=== PATIENT | male | born 1950 | race Caucasian/White ===

== ENCOUNTER 2018-02-07 12:23 | Emergency (ER) | payer OTHER ==
[2018-02-07] MEDS ORDERED: AMOX/K CLAV 875 MG TAB ONE (12:49)
[2018-02-07] MEDS ORDERED: TETANUS & DIPHTHERIA TOX,ADULT 0.5 ML VIAL ONE (12:50)
[2018-02-07] MEDS ORDERED: LIDOCAINE 1% MPF 2 ML AMPULE ONE (13:40)
--- NOTE | 2018-02-07 13:55 | ER ---
Nurse's Notes [facility] Name: Seth Ng Age: 67 yrs Sex: Male : 1950 Arrival Date: 02/07/2018 Time: 12:26 Bed 19 Private MD: Diagnosis: Bitten by dog;Laceration without foreign body of left thumb without damage to nail;Puncture wound without foreign body of left thumb without damage to nail Presentation: 02/07 12:26 Presenting complaint: Patient states: My dog got hit by a car and I went out to pick it la1 up and she latched on to my left thumb and wound not let go. PT reports decreased ROM of thumb. Transition of care: patient was not received from another setting of care. Onset of symptoms was February 07, 2018. Risk Assessment: Do you want to hurt yourself or someone else? Patient reports no desire to harm self or others. Initial Sepsis Screen: Does the patient meet any 2 criteria? No. Patient's initial sepsis screen is negative. Does the patient have a suspected source of infection? No. Patient's initial sepsis screen is negative. Care prior to arrival: None. 12:26 Method Of Arrival: Ambulatory la1 12:26 Acuity: NEO 3 la1 Triage Assessment: 12:37 General: Appears in no apparent distress. uncomfortable, Behavior is calm, cooperative, hj appropriate for age. Pain: Complains of pain in lateral aspect of left hand and palmar aspect of distal phalanx of left thumb. Historical: - Allergies: 12:28 No Known Allergies; la1 - PMHx: 12:28 Hypertension; la1 - Immunization history:: Adult Immunizations up to date, Last tetanus immunization: > 10 years ago. - Social history:: Smoking status: Patient/guardian denies using tobacco. - Ebola Screening: : No symptoms or risks identified at this time. Screenin:37 Abuse screen: Denies threats or abuse. Denies injuries from another. Nutritional hj screening: No deficits noted. Tuberculosis screening: No symptoms or risk factors identified. Fall Risk None identified. Assessment: 12:37 General: Appears in no apparent distress. uncomfortable, Behavior is calm, cooperative, hj appropriate for age. Pain: Complains of pain in palmar aspect of distal phalanx of left thumb and lateral aspect of left hand. Neuro: Level of Consciousness is awake, alert, obeys commands, Oriented to person, place, time, situation, Appropriate for age. Cardiovascular: Capillary refill < 3 seconds Patient's skin is warm and dry. Respiratory: Airway is patent Respiratory effort is even, unlabored, Respiratory pattern is regular, symmetrical. GI: No signs and/or symptoms were reported involving the gastrointestinal system. : No signs and/or symptoms were reported regarding the genitourinary system. EENT: No signs and/or symptoms were reported regarding the EENT system. Derm: Wound noted. Musculoskeletal: No signs and/or symptoms reported regarding the musculoskeletal system. 12:53 Reassessment: wound was soaked with betadine and NS;. hj 13:04 Reassessment: [place] ([phone]) was called and reported the incident to dispatcher Asher, states, she will send PD officer to the ED;. 13:55 Reassessment: wound was wrapped with gauze and co band;. hj 14:02 Reassessment: officer was in room with pt; lac repair done; D/C instructionsgiven;. hj Vital Signs: 12:28 BP 144 / 99; Pulse 95; Resp 16; Temp 97.2; Pulse Ox 100% on R/A; la1 14:02 BP 142 / 97; Pulse 90; Resp 18; Pulse Ox 100% on R/A; hj ED Course: 12:26 Patient arrived in ED. tw3 12:27 Triage completed. la1 12:28 Arm band placed on right wrist. la1 12:30 Lissette Dickerson [facility]-C [facility]. kb 12:30 Manny Dorman MD is Attending Physician. kb 12:35 Ross Paez, MAN is Primary Nurse. hj 12:37 Patient has correct armband on for positive identification. Bed in low position. Call hj light in reach. Side rails up X 1. 13:38 X-ray completed. Portable x-ray completed in exam room. Patient tolerated procedure la2 well. 13:48 Hand Left 3 View XRAY In Process Unspecified. EDMS 14:01 No provider procedures requiring assistance completed. Patient did not have IV access hj during this emergency room visit. Administered Medications: 12:35 Drug: Tetanus-Diphtheria Toxoid Adult 0.5 ml {Sheet Metal Operator: [employer]. Exp: hj 01/22/2019. Lot #: [id number]. } Route: IM; Site: left deltoid; 13:30 Follow up: Response: No adverse reaction 12:35 Drug: Augmentin 875 mg Route: PO; 13:30 Follow up: Response: No adverse reaction Outcome: 13:54 Discharge ordered by . zully 14:01 Discharged to home ambulatory. hj 14:01 Condition: stable 14:01 Discharge instructions given to patient, Instructed on discharge instructions, follow up and referral plans. medication usage, wound care, Demonstrated understanding of instructions, follow-up care, medications, Prescriptions given X 1. 14:03 Patient left the ED. Signatures: Dispatcher [employer] EDMS Lissette Dickerson, MAXIC DRILL PRESS OPERATOR FOR METAL-Corky Khoury RN RN la1 Ross Paez, RN RN Natalie López tw3 Donna Oliver2 Corrections: (The following items were deleted from the chart) 13:07 13:04 Reassessment: Mary VILLELA was called and reported the incident to dispatcher barney Sterling, states, she will send PD officer to the ED; barney
--- NOTE | 2018-02-07 13:55 | EDPHYS ---
Physician Documentation [facility] Name: Seth Ng Age: 67 yrs Sex: Male : 1950 Arrival Date: 02/07/2018 Time: 12:26 Bed 19 Private MD: ED Physician Manny Dorman HPI: 02/07 13:50 This 67 yrs old Male presents to ER via Ambulatory with complaints of Dog kb Bite. 13:50 The patient was bitten on the left thumb, by a dog, while tending to the injured kb animal, outdoors. Onset: The symptoms/episode began/occurred just prior to arrival. Animal information: The animal was reported to appear healthy. Animal's vaccinations are up to date. Secondary to the bite the patient reports pain, Associated signs and symptoms: Pertinent positives: pain at site, swelling at site, tenderness. Severity of symptoms: At their worst the symptoms were moderate, in the emergency department the symptoms are unchanged. The patient has not experienced similar symptoms in the past. The patient has not recently seen a physician. Historical: - Allergies: 12:28 No Known Allergies; la1 - PMHx: 12:28 Hypertension; la1 - Immunization history:: Adult Immunizations up to date, Last tetanus immunization: > 10 years ago. - Social history:: Smoking status: Patient/guardian denies using tobacco. - Ebola Screening: : No symptoms or risks identified at this time. ROS: 13:29 Constitutional: Negative for fever, chills, and weight loss, Cardiovascular: Negative kb for chest pain, palpitations, and edema, Respiratory: Negative for shortness of breath, cough, wheezing, and pleuritic chest pain, Abdomen/GI: Negative for abdominal pain, nausea, vomiting, diarrhea, and constipation, Neuro: Negative for headache, weakness, numbness, tingling, and seizure. 13:29 MS/extremity: Positive for injury or acute deformity, decreased range of motion, pain, of the left thumb. 13:29 Skin: Positive for laceration(s), puncture, of the left thumb. Exam: 13:49 Constitutional: This is a well developed, well nourished patient who is awake, alert, kb and in no acute distress. Head/Face: Normocephalic, atraumatic. Neck: Trachea midline, no thyromegaly or masses palpated, and no cervical lymphadenopathy. Supple, full range of motion without nuchal rigidity, or vertebral point tenderness. No Meningismus. Chest/axilla: Normal chest wall appearance and motion. Nontender with no deformity. No lesions are appreciated. Cardiovascular: Regular rate and rhythm with a normal S1 and S2. No gallops, murmurs, or rubs. Normal PMI, no JVD. No pulse deficits. Respiratory: Lungs have equal breath sounds bilaterally, clear to auscultation and percussion. No rales, rhonchi or wheezes noted. No increased work of breathing, no retractions or nasal flaring. Abdomen/GI: Soft, non-tender, with normal bowel sounds. No distension or tympany. No guarding or rebound. No evidence of tenderness throughout. Neuro: Awake and alert, GCS 15, oriented to person, place, time, and situation. Cranial nerves II-XII grossly intact. Motor strength 5/5 in all extremities. Sensory grossly intact. Cerebellar exam normal. Normal gait. 13:49 Musculoskeletal/extremity: Extremities: grossly normal except: noted in the left thumb: decreased ROM, laceration, pain, puncture, swelling, ROM: limited active range of motion, in the left thumb, Circulation is intact in all extremities. Sensation intact. 13:50 Skin: injury, bite(s), superficial, of the left thumb. Vital Signs: 12:28 BP 144 / 99; Pulse 95; Resp 16; Temp 97.2; Pulse Ox 100% on R/A; la1 14:02 BP 142 / 97; Pulse 90; Resp 18; Pulse Ox 100% on R/A; hj Laceration: 13:49 Wound Repair of 2cm ( 0.8in ) subcutaneous laceration to palmar aspect of proximal kb phalanx of left thumb. Irregularly shaped.. Distal neuro/vascular/tendon intact. Anesthesia: Local anesthetic administered with 1 mls of 1% lidocaine. Wound prep: Extensive cleansing with betadine by me, Wound irrigation with saline by hi. Skin closed with 2 4-0 Prolene using interrupted sutures and sterile technique. Dressed with Bacitracin, 4x4's. Patient tolerated well. MDM: 12:30 Patient medically screened. 13:48 Data reviewed: vital signs, nurses notes. Data interpreted: Pulse oximetry: on room air kb is 100 %. Interpretation: normal. Counseling: I had a detailed discussion with the patient and/or guardian regarding: the historical points, exam findings, and any diagnostic results supporting the discharge/admit diagnosis, radiology results, the need for outpatient follow up, a family practitioner, to return to the emergency department if symptoms worsen or persist or if there are any questions or concerns that arise at home. 02/07 12:33 Order name: Hand Left 3 View XRAY kb 02/07 12:33 Order name: Wound Care: clean wound; Complete Time: 12:46 kb Administered Medications: 12:35 Drug: Tetanus-Diphtheria Toxoid Adult 0.5 ml {[employer]: [employer] Exp: hj 01/22/2019. Lot #: [id number]. } Route: IM; Site: left deltoid; 13:30 Follow up: Response: No adverse reaction hj 12:35 Drug: Augmentin 875 mg Route: PO; hj 13:30 Follow up: Response: No adverse reaction hj Disposition: 14:45 Co-signature as Attending Physician, Manny Dorman MD I agree with the assessment and ginette plan of care. Disposition: 02/07/18 13:54 Discharged to Home. Impression: Bitten by dog, Laceration without foreign body of left thumb without damage to nail, Puncture wound without foreign body of left thumb without damage to nail. - Condition is Stable. - Discharge Instructions: Animal Bite, [id number], Laceration Care, Adult, [id number]. - Prescriptions for Augmentin 875- 125 mg Oral Tablet - take 1 tablet by ORAL route every 12 hours for 7 days; 14 tablet. - Medication Reconciliation Form, Thank You Letter, Antibiotic Education, Prescription Opioid Use form. - Follow up: Emergency Department; When: As needed; Reason: Worsening of condition. Follow up: Private Physician; When: 2 - 3 days; Reason: Recheck today's complaints, Continuance of care, Re-evaluation by your physician. Signatures: Dispatcher [employer] Lissette Christensen, INSPECTOR RAW QUARTZ-C INSPECTOR RAW QUARTZ-Manny Barnes MD MD cha Attema, Lee RN RN Ross Rodríguez RN RN hj Corrections: (The following items were deleted from the chart) 14:03 13:54 02/07/2018 13:54 Discharged to Home. Impression: Bitten by dog; Laceration hj without foreign body of left thumb without damage to nail; Puncture wound without foreign body of left thumb without damage to nail. Condition is Stable. Forms are Medication Reconciliation Form, Thank You Letter, Antibiotic Education, Prescription Opioid Use. Follow up: Emergency Department; When: As needed; Reason: Worsening of condition. Follow up: Private Physician; When: 2 - 3 days; Reason: Recheck today's complaints, Continuance of care, Re-evaluation by your physician. kb
--- NOTE | 2018-02-07 14:04 | RAD REPORT ---
EXAM DESCRIPTION: RAD - Hand Left 3 View - 02/07/2018 1:48 pm CLINICAL HISTORY: Dog bite, trauma to the thumb COMPARISON: November 2006 FINDINGS: Degenerative changes present at the IP joint of the thumb. No fracture of the thumb identi fied. No air or foreign body in the soft tissues. Patient has advanced degenerative change at the trapezium first metacarpal articulation. Minimal IP j oint space narrowing seen in the second-fifth digits. IMPRESSION: No fracture or acute finding of the thumb. No air or foreign body. Elsewhere in the hand degenerative changes are present without acute finding.
[2018-02-07 14:06] VITALS: TEMP 97.2; O2SAT 100
[2018-02-07 14:07] VITALS: BP 142/97
== END 2018-02-07 14:03 | disposition home or self-care (01) ==
LOC: ER 12:23
DX: S61.012A Laceration without foreign body of left thumb without damage to nail, initial encounter (principal); S61.032A Puncture wound without foreign body of left thumb without damage to nail, initial encounter; W54.0XXA Bitten by dog, initial encounter; Y93.9 Activity, unspecified; Y92.9 Unspecified place or not applicable; Z23 Encounter for immunization
CPT/HCPCS: 73130; 90714; 99283; J2001

== ENCOUNTER 2020-05-04 20:10 | Inpatient (IN) | payer OTHER, MEDICARE ==
--- OUTSIDE RECORDS SUMMARY | 2020-05-04 20:12 | XMS REPORT | Continuity of Care Document ---
:1950 Author Organization [facility] t Address [address] [place] [address] Care Team Providers Name Role Phone Lab, [facility] Short I Attending Clinician Unavailable ROBERT Attending Clinician Unavailable Problems This patient has no known problems. Allergies, Adverse Reactions, Alerts This patient has no known allergies or adverse reactions. Medications This patient has no known medications. Procedures This patient has no known procedures. Encounters Start End Encounter Admission Attending Care Care Encounter Source Date/Time Date/Time Type Type Clinicians Facility Department ID 2020-04-24 2020-04-24 Laboratory Lab, [facility] [id number] 16:44:42 17:04:42 Only [facility] [id number] [place] [id number] [facility] [phone] nal 0[address] One Results Test Description Test Time Test Comments Results Result Sourc e Comments CHEST 2 VIEWS 2018-03-09 11:47:00 [facility] [address] [place] [address] Patient Name: LILIAN DUNLAP MR #: [id number] : 1950 Age/Sex: 67/M Req #: [id number] Adm Physician: Ordered by: ERIK JONES MD Report #: [id number] Location: OR Room/Bed: Procedure: [id number] DX/CHEST 2 VIEWS Exam Date: Exam Time: REPORT STATUS: Signed EXAM: XR CHEST 2 VIEWS DATE: 03/09/2018 11:07 AM INDICATION: Preop, trigger finger surgery COMPARISON: None FINDINGS: Lines and Tubes: None Heart and Mediastinum: No acute cardiomediastinal findings. Lungs and Pleura: No significant pleural effusion, pneumothorax, or focal consolidation. Bones and Soft Tissues: No acute findings. IMPRESSION: 1. No acute cardiopulmonary findings. Signed by: Dr. Jayy Friend MD on 03/09/2018 11:47 AM Dictated By: JAYY FRIEND MD [id number] Transcribed By: OLMAN on 03/09/18 [id number] COPY TO: ERIK JONES MD
--- OUTSIDE RECORDS SUMMARY | 2020-05-04 20:12 | XMS REPORT | Summary of Care ---
:1950 Author Organization [facility] Address [address] [place] [address] Care Team Providers Name Role Phone Alejandro Primary Care Provider Encounter Details Date Type Department Care Team Description 04/24/2020 Laboratory Only [facility] Kristen Jordan, NEW CAR MAKE READY WORKER [address] [facility] [address] [place] [address] Exposure to Medicine - [facility], Adc Fam Pob I SARS-associated [address] [facility] coronavir[address] s ([address] Dx) [place] [address] Allergies Not on Filedocumented as of this encounter (statuses as of 04/24/2020) Medications Not on filedocumented as of this encounter (statuses as of 04/24/2020) Active Problems Not on filedocumented as of this encounter (statuses as of 04/24/2020) Social History Tobacco Use Types Packs/Day Years Used Date Never Assessed Sex Assigned at Date Recorded Not on file documented as of this encounter Last Filed Vital Signs Not on filedocumented in this encounter Nursing Notes Ramiro Vazquez MA - 04/24/2020 6:40 PM Nelsy Thelma Ng is a 69 year old male here for a Rule Out Covid-19 Nasopharyngeal Swab. Patient educated on plan of care for visit, swabbing technique, risks and benefits of test and length of time to receive results. Verbal consent obtained to perform test. CDC Fact Sheet for Patients provided to patient. All droplet and contact precautions taken with appropriate PPE worn while interacting with patient. - Goggles - N95 Mask - Gloves - Gown RR=18 O2 Sat=96% Patient swabbed using appropriate nasopharyngeal technique, and patient tolerated well. Patient was discharged in stable condition. Ramiro Vazquez MA 04/24/2020 4:49 PM /HOSTESS HEAD documented in this encounter Plan of Treatment Name Type Priority Associated Diagnoses Order S chedule COVID-19 (MOLECULAR LAB Routine Exposure to Expected : 04/24/2020, TESTING SARS-associated Expires: 021 NUCLEIC ACID coronavirus AMPLIFICATION) Health Maintenance Due Date Last Done Comments HEPATITIS C (HCV) SCREEN 1950 Depression Screening 1964 DTaP,Tdap,and Td Vaccines (1 - Tdap) 1971 COLON CANCER SCREENING ANNUAL FIT/FOBT 2002 COLON CANCER SCREENING FIT DNA EVERY 3 YEARS 2002 COLON CANCER SCREENING SIGMOIDOSCOPY EVERY 5 YEARS 2002 COLONOSCOPY 2002 Colorectal Cancer Screening 2002 Zoster Recombinant Vaccine (SHINGRIX) (1 of 2) 2002 Medicare Wellness Visit 2017 PNEUMOCOCCAL VACCINES 65+ (1 of 1 - PPSV23) 2017 INFLUENZA VACCINE (#1) 2019 documented as of this encounter Results Not on filedocumented in this encounter Visit Diagnoses Diagnosis Exposure to SARS-associated coronavirus - Primary documented in this encounter Additional Health Concerns Infection Onset Date Last Indicated Resolved Time COVID-19 Rule Out 04/24/2020 04/24/2020 documented as of this encounter Insurance Payer Benefit Plan / Subscriber ID Effective Dates Phone Addre ss Type Group [employer] [id number] 2019-Present Medicare Adv spring HMO documented as of this encounter
--- NOTE | 2020-05-04 20:58 | RAD REPORT ---
EXAM DESCRIPTION: Haley Single View05/04/2020 8:52 pm CLINICAL HISTORY: Chest pain COMPARISON: 2016 FINDINGS: The lungs appear clear of acute infiltrate. The heart is normal size. Right hemidiaphragm is mildly elevated
[2020-05-04 21:44] LABS: Absolute Lymphocytes (CBC) 1.2 K/uL (0.7-4.9); Basophils % 0.4 % (0-1.3); Hematocrit 42.1 % (39.6-49.0); Lymphocytes % 22.3 % (15.3-44.8); MPV 8.4 fL (7.6-11.3)
[2020-05-04 21:47] LABS: Protime INR 0.87
[2020-05-04 22:07] LABS: ALT/SGPT 23 U/L (12-78); AST/SGOT 15 U/L (15-37); Albumin 3.7 g/dL (3.4-5.0); Alkaline Phosphatase 82 U/L (45-117); BUN Blood Urea Nitrogen 22 mg/dL (7-18); Bicarbonate 31 mmol/L (21-32); Bilirubin Direct < 0.1 mg/dL (0-0.2); Bilirubin Total 0.2 mg/dL (0.2-1.0); Glucose Level 179 mg/dL (74-106); NT PRO-BNP 36 pg/mL (<125); Protein, Total 6.8 g/dL (6.4-8.2); Sodium Level 142 mmol/L (136-145); Troponin (Emerg Dept Use Only) < 0.02 ng/mL (0.0-0.045)
[2020-05-04 22:30] LABS: SARS-COV-2 RT PCR NEGATIVE (NEGATIVE)
--- NOTE | 2020-05-04 23:31 | ER ---
Nurse's Notes [facility] Name: Seth Ng Age: 70 yrs Sex: Male : 1950 Arrival Date: 05/04/2020 Time: 20:13 Bed 13 Private MD: Caden Allen Diagnosis: Chest pain Presentation: 05/04 20:18 Chief complaint: Patient states: CP off/on for 4-5 days. CP constant for 45 minutes. ll1 Pain radiates into L arm. Saw Alejandro Taveras, EKG scheduled for tomorrow, but decided not to wait. Coronavirus screen: Client denies travel out of the [place] in the last 14 days. At this time, the client does not indicate any symptoms associated with coronavirus-19. Ebola Screen: Patient denies travel to an Ebola-affected area in the 21 days before illness onset. Initial Sepsis Screen: Does the patient meet any 2 criteria? No. Patient's initial sepsis screen is negative. Does the patient have a suspected source of infection? No. Patient's initial sepsis screen is negative. Risk Assessment: Do you want to hurt yourself or someone else? Patient reports no desire to harm self or others. Onset of symptoms was April 30, 2020. 20:18 Method Of Arrival: Ambulatory ll1 20:18 Acuity: NEO 3 ll1 Historical: - Allergies: 20:18 No Known Allergies; ll1 - PMHx: 20:18 Hypertension; Thyroid problem; ll1 - PSHx: 20:18 knee, hand, stomache; ll1 - Immunization history:: Flu vaccine is not up to date. - Social history:: Smoking status: Patient denies any tobacco usage or history of. Smoking status: . Screenin:30 Abuse screen: Denies threats or abuse. Nutritional screening: No deficits noted. vg1 Tuberculosis screening: No symptoms or risk factors identified. Fall Risk No fall in past 12 months (0 pts). No secondary diagnosis (0 pts). IV access (20 points). Ambulatory Aid- None/Bed Rest/Nurse Assist (0 pts). Gait- Weak (10 pts.). Mental Status- Oriented to own ability (0 pts). Total Calzada Fall Scale indicates No Risk (0-24 pts). Assessment: 20:28 General: Appears in no apparent distress. comfortable, Behavior is calm, cooperative. vg1 Pain: Denies pain. Neuro: Level of Consciousness is awake, alert, obeys commands, Oriented to person, place, time, situation. Cardiovascular: Capillary refill < 3 seconds Patient's skin is warm and dry. Cardiovascular: Rhythm is regular. Respiratory: Airway is patent Respiratory effort is even, unlabored, Respiratory pattern is regular, symmetrical. GI: No signs and/or symptoms were reported involving the gastrointestinal system. : No signs and/or symptoms were reported regarding the genitourinary system. EENT: No signs and/or symptoms were reported regarding the EENT system. 21:20 Reassessment: Patient appears in no apparent distress at this time. Patient is alert, vg1 oriented x 3, equal unlabored respirations, skin warm/dry/pink. Patient denies pain at this time. 22:25 Reassessment: No changes from previously documented assessment. vg1 05/05 01:00 General: Appears Behavior is calm, cooperative, appropriate for age. Pain: Denies pain. jv1 Neuro: Level of Consciousness is awake, alert, obeys commands, Oriented to person, place, time, situation, Cupola Repairer are equal bilaterally Moves all extremities. Cardiovascular: Capillary refill < 3 seconds Patient's skin is warm and dry. Rhythm is regular. Respiratory: Airway is patent Respiratory effort is even, unlabored, Respiratory pattern is regular, symmetrical. GI: No signs and/or symptoms were reported involving the gastrointestinal system. : No signs and/or symptoms were reported regarding the genitourinary system. EENT: No signs and/or symptoms were reported regarding the EENT system. Vital Signs: 05/04 20:18 BP 176 / 114; Pulse 75; Resp 17; Pulse Ox 98% ; Weight 102.97 kg; Height 5 ft. 10 in. ll1 (177.80 cm); Pain 10/10; 20:30 BP 148 / 86; Pulse 67; Resp 18; Pulse Ox 97% on R/A; vg1 21:00 BP 134 / 77; Pulse 61; Resp 14; Pulse Ox 96% on R/A; vg1 21:30 BP 148 / 86; Pulse 64; Resp 20; Pulse Ox 97% on R/A; vg1 22:00 BP 145 / 89; Pulse 65; Resp 16; Pulse Ox 98% on R/A; vg1 22:30 BP 131 / 79; Pulse 56; Resp 16; Pulse Ox 95% on R/A; vg1 23:00 BP 130 / 77; Pulse 57; Resp 14; Pulse Ox 96% on R/A; vg1 23:30 BP 137 / 88; Pulse 59; Resp 16; Pulse Ox 98% on R/A; vg1 05/05 00:30 BP 135 / 85; Pulse 58; Resp 18; Temp 98.5; Pulse Ox 100% ; Pain 0/10; jv1 01:30 BP 137 / 74; Pulse 55; Resp 18; Temp 98.5; Pulse Ox 96% ; Pain 0/10; jv1 05/04 20:18 Body Mass Index 32.57 (102.97 kg, 177.80 cm) ll1 ED Course: 05/04 20:13 Patient arrived in ED. es 20:13 Caden Allen MD is Private Physician. es 20:17 Arm band placed on. ll1 20:20 Triage completed. ll1 20:20 Ananda Vincent MD is Attending Physician. pkl 20:22 Edith Schwarz, MAN is Primary Nurse. vg1 20:30 Patient has correct armband on for positive identification. Bed in low position. Call vg1 light in reach. Side rails up X 1. high school business teacher on. Pulse ox on. NIBP on. 20:52 XRAY Chest (1 view) In Process Unspecified. EDMS 21:30 COVID swab sent to lab. Flu and/or RSV swab sent to lab. Inserted saline lock: 20 gauge jp3 in right antecubital area, using aseptic technique. Blood collected. Patient maintains SpO2 saturation greater than 95% on room air. 23:25 Repeat lab(s) drawn. by ny, sent to lab. vg1 23:30 Eddie Ramirez DO is Hospitalizing Provider. pkl 05/05 01:00 Report given to Lorena CONWAY. vg1 02:44 No provider procedures requiring assistance completed. Patient admitted, IV remains in jv1 place. Administered Medications: 05/04 20:42 Not Given (Changing dose per dr vincent order): Metoprolol TARTRATE (Lopressor) 50 mg PO vg1 once 20:45 Not Given (Patient BP has lowered. Dr Vincent ordered to cancel medication): Metoprolol 25 vg1 mg PO once Outcome: 23:31 Decision to Hospitalize by Provider. len 05/05 02:00 Admitted to jv1 Admitted to ER Hold. Please see [facility] for further documentation. Condition: stable Instructed on the need for admit. 08:29 Patient left the ED. Signatures: Dispatcher [employer] Ananda Huizar MD MD pkl Massiel Quiles Shelby RN RN ss Juan J Mahoney jp3 Lorena Quinones RN RN jv1 Edith Schwarz RN RN vg1 Sonja Howell RN RN ll1
--- NOTE | 2020-05-04 23:31 | EDPHYS ---
Physician Documentation [facility] Name: Seth Ng Age: 70 yrs Sex: Male : 1950 Arrival Date: 05/04/2020 Time: 20:13 Bed 13 Private MD: Caden Allen ED Physician Ananda Vincent HPI: 05/04 20:35 This 70 yrs old Male presents to ER via Ambulatory with complaints of Chest pkl Pain. 20:35 The patient or guardian reports chest pain that is located primarily in the substernal pkl area. Onset: 4 day(s) ago, and became worse today. The pain radiates to the left arm. Associated signs and symptoms: The patient has no apparent associated signs or symptoms. The chest pain is described as a pressure. Historical: - Allergies: 20:18 No Known Allergies; ll1 - PMHx: 20:18 Hypertension; Thyroid problem; ll1 - PSHx: 20:18 knee, hand, stomache; ll1 - Immunization history:: Flu vaccine is not up to date. - Social history:: Smoking status: Patient denies any tobacco usage or history of. Smoking status: . ROS: 20:35 Eyes: Negative for injury, pain, redness, and discharge, ENT: Negative for injury, pkl pain, and discharge, Neck: Negative for injury, pain, and swelling. 20:35 Cardiovascular: Positive for chest pain. 20:35 Respiratory: Negative for cough, shortness of breath. 20:35 Abdomen/GI: Negative for abdominal pain, nausea, vomiting, and diarrhea. 20:35 Back: Negative for acute changes. 20:35 : Negative for urinary symptoms. 20:35 MS/extremity: Negative for acute changes. 20:35 Skin: Negative for rash. 20:35 Neuro: Negative for altered mental status, loss of consciousness. Exam: 20:35 Head/Face: Normocephalic, atraumatic. Eyes: Pupils equal round and reactive to light, pkl extra-ocular motions intact. Lids and lashes normal. Conjunctiva and sclera are non-icteric and not injected. Cornea within normal limits. Periorbital areas with no swelling, redness, or edema. ENT: Nares patent. No nasal discharge, no septal abnormalities noted. Tympanic membranes are normal and external auditory canals are clear. Oropharynx with no redness, swelling, or masses, exudates, or evidence of obstruction, uvula midline. Mucous membranes moist. Neck: Trachea midline, no thyromegaly or masses palpated, and no cervical lymphadenopathy. Supple, full range of motion without nuchal rigidity, or vertebral point tenderness. No Meningismus. Chest/axilla: Normal chest wall appearance and motion. Nontender with no deformity. No lesions are appreciated. Cardiovascular: Regular rate and rhythm with a normal S1 and S2. No gallops, murmurs, or rubs. Normal PMI, no JVD. No pulse deficits. Respiratory: Lungs have equal breath sounds bilaterally, clear to auscultation and percussion. No rales, rhonchi or wheezes noted. No increased work of breathing, no retractions or nasal flaring. Abdomen/GI: Soft, non-tender, with normal bowel sounds. No distension or tympany. No guarding or rebound. No evidence of tenderness throughout. Back: No spinal tenderness. No costovertebral tenderness. Full range of motion. Skin: Warm, dry with normal turgor. Normal color with no rashes, no lesions, and no evidence of cellulitis. MS/ Extremity: Pulses equal, no cyanosis. Neurovascular intact. Full, normal range of motion. Neuro: Awake and alert, GCS 15, oriented to person, place, time, and situation. Cranial nerves II-XII grossly intact. Motor strength 5/5 in all extremities. Sensory grossly intact. Cerebellar exam normal. Normal gait. Vital Signs: 20:18 BP 176 / 114; Pulse 75; Resp 17; Pulse Ox 98% ; Weight 102.97 kg; Height 5 ft. 10 in. ll1 (177.80 cm); Pain 10/10; 20:30 BP 148 / 86; Pulse 67; Resp 18; Pulse Ox 97% on R/A; vg1 21:00 BP 134 / 77; Pulse 61; Resp 14; Pulse Ox 96% on R/A; vg1 21:30 BP 148 / 86; Pulse 64; Resp 20; Pulse Ox 97% on R/A; vg1 22:00 BP 145 / 89; Pulse 65; Resp 16; Pulse Ox 98% on R/A; vg1 22:30 BP 131 / 79; Pulse 56; Resp 16; Pulse Ox 95% on R/A; vg1 23:00 BP 130 / 77; Pulse 57; Resp 14; Pulse Ox 96% on R/A; vg1 23:30 BP 137 / 88; Pulse 59; Resp 16; Pulse Ox 98% on R/A; vg1 05/05 00:30 BP 135 / 85; Pulse 58; Resp 18; Temp 98.5; Pulse Ox 100% ; Pain 0/10; jv1 01:30 BP 137 / 74; Pulse 55; Resp 18; Temp 98.5; Pulse Ox 96% ; Pain 0/10; jv1 05/04 20:18 Body Mass Index 32.57 (102.97 kg, 177.80 cm) ll1 MDM: 05/04 20:20 Patient medically screened. pkl 23:25 Data reviewed: vital signs, nurses notes, lab test result(s), EKG, radiologic studies, pkl CT scan. ED course: Talked to Dr. Allen, leaving [facility] in the morning. To admit to Hospitalist service. 05/04 20:34 Order name: Basic Metabolic Panel; Complete Time: 23:05 pkl 05/04 20:34 Order name: CBC with Diff; Complete Time: 23:05 pkl 05/04 20:34 Order name: LFT's; Complete Time: 23:05 pkl 05/04 20:34 Order name: Magnesium; Complete Time: 23:05 pkl 05/04 20:34 Order name: NT PRO-BNP; Complete Time: 23:05 pkl 05/04 20:34 Order name: PT-INR; Complete Time: 23:05 pkl 05/04 20:34 Order name: Troponin (emerg Dept Use Only); Complete Time: 23:05 pkl 05/04 20:34 Order name: D-Dimer; Complete Time: 23:05 pkl 05/04 20:34 Order name: TSH; Complete Time: 23:05 pkl 05/04 22:12 Order name: T4 Free; Complete Time: 23:05 EDMS 05/04 22:31 Order name: COVID-19/FLU A+B; Complete Time: 23:05 EDMS 05/04 23:09 Order name: Troponin (emerg Dept Use Only) pkl 05/04 20:34 Order name: XRAY Chest (1 view); Complete Time: 21:30 pkl 05/04 20:34 Order name: EKG; Complete Time: 20:35 pkl 05/04 20:34 Order name: Cardiac monitoring; Complete Time: 20:39 pkl 05/04 20:34 Order name: EKG - Nurse/Tech; Complete Time: 20:39 pkl 05/04 20:34 Order name: IV Saline Lock; Complete Time: 21:41 pkl 05/04 20:34 Order name: Labs collected and sent; Complete Time: 21:41 pkl 05/04 20:34 Order name: O2 Per Protocol; Complete Time: 20:39 pkl 05/04 20:34 Order name: O2 Sat Monitoring; Complete Time: 20:39 pkl 05/04 23:09 Order name: EKG; Complete Time: 23:09 pkl 05/05 06:22 Order name: CBC with Automated Diff EDMS 05/05 06:34 Order name: Basic Metabolic Panel EDMS 05/05 06:34 Order name: Troponin I EDMS 05/05 06:34 Order name: Lipid Profile EDMS 05/05 06:34 Order name: Magnesium EDMS Administered Medications: 20:42 Not Given (Changing dose per dr vincent order): Metoprolol TARTRATE (Lopressor) 50 mg PO vg1 once 20:45 Not Given (Patient BP has lowered. Dr Vincent ordered to cancel medication): Metoprolol 25 vg1 mg PO once Disposition: 05/04/20 23:31 Hospitalization ordered by Eddie Ramierz for Observation. Preliminary diagnosis is Chest pain. - Bed requested for Telemetry/MedSurg (observation). - Status is Observation. ss - Condition is Stable. - Problem is new. - Symptoms are unchanged. Signatures: Dispatcher [employer] EDMS Ananda Vincent MD MD pkl Smirch, Shelby, RN RN ss Garcia, Cindy, RN RN cg Alyson Martino Victoria RN RN vg1 Sonja Howell RN RN ll1 Corrections: (The following items were deleted from the chart) 21:39 20:35 Influenza Screen (A \T\ B)+BA.LAB.BRZ ordered. EDMS EDMS 21:39 20:35 CORONAVIRUS+MR.LAB.BRZ ordered. EDMS EDMS 23:55 23:31 Hospitalization Ordered by Eddie Ramirez DO for Observation. Preliminary cg diagnosis is Chest pain. Bed requested for Telemetry/MedSurg (observation). Status is Observation. Condition is Stable. Problem is new. Symptoms are unchanged. pkl 05/05 07:58 05/04 23:55 05/04/2020 23:31 Hospitalization Ordered by Eddie Ramirez DO for eb Observation. Preliminary diagnosis is Chest pain. Bed requested for [facility] ER HOLD. Status is Observation. Condition is Stable. Problem is new. Symptoms are unchanged. cg 05/05 08:29 07:58 05/04/2020 23:31 Hospitalization Ordered by Eddie Ramirez DO for Observation. ss Preliminary diagnosis is Chest pain. Bed requested for Telemetry/MedSurg (observation). Status is Observation. Condition is Stable. Problem is new. Symptoms are unchanged. eb
--- NOTE | 2020-05-04 23:49 | P.HP ---
Certification for Inpatient Patient admitted to: Observation With expected LOS: <2 Midnights Patient will require the following post-hospital care: None Practitioner: I am a practitioner with admitting privileges, knowledge of patient current condition, hospital course, and medical plan of care. Services: Services provided to patient in accordance with Admission requirements found in Title 42 Section 412.3 of the Code of Federal Regulations <Corky Bray - Last Filed: 05/04/20 23:47> Patient admitted to: Observation <Eddie Ramirez - Last Filed: 05/05/20 11:01> Patient History Date of Service: 05/04/20 Primary Care Provider: Dr. Gudino (Covering for him) Reason for admission: Chest pain History of Present Illness: 70-year-old male with history of hypertension, hypothyroidism, family history of coronary artery disease presents emergency department for chest pain patient reports that he has been having pain intermittently for the past for 5 days but worse tonight. Describes pain as tightness like a belt squeezing around his heart with associated shortness of breath, pain radiating to left shoulder. Patient had stress test approximately 5 months ago that was normal, has never had a heart catheterization or stent placement. Initial troponin, EKG, chest x- ray unremarkable. ED provider wishes to admit patient for further evaluation and management. - Past Medical/Surgical History Diabetic: No -: HTN -: Hypothyroidism -: Left knee arthroscopy x2 -: Bialteral carpal tunnel release -: diaphragmatic and hiatal hernai repair Psychosocial/ Personal History: Patient lives with family - Social History Smoking Status: Never smoker Alcohol use: No CD- Drugs: No Caffeine use: Yes Place of Residence: Home <Corky Bray - Last Filed: 05/04/20 23:47> Date of Service: 05/05/20 Home medications list reviewed: Yes <Eddie Ramirez - Last Filed: 05/05/20 11:01> Allergies codeine Adverse Reaction (Mild, Verified 01/11/13 14:29) migraine Home Medications: Ascorbic Acid [Vitamin C] 2,000 mg PO DAILY 05/05/20 Atenolol [Tenormin] 25 mg PO DAILY 05/05/20 Doxycycline Hyclate 50 mg PO DAILY 05/05/20 Levothyroxine [Synthroid] 50 mcg PO [id number] 01/08/21 hydroCHLOROthiazide [Hydrochlorothiazide*] 12.5 mg PO DAILY 05/05/20 lisinopriL [Lisinopril] 40 mg PO DAILY 05/05/20 Review of Systems 10-point ROS is otherwise unremarkable Respiratory: Shortness of Breath, SOB with Excertion Cardiovascular: Chest Pain <Corky Bray - Last Filed: 05/04/20 23:47> Physical Examination - Physical Exam General: Alert, In no apparent distress HEENT: Atraumatic, PERRLA, Mucous membr. moist/pink Neck: Supple, 2+ carotid pulse no bruit, No LAD Respiratory: Clear to auscultation bilaterally, Normal air movement Cardiovascular: Regular rate/rhythm, Normal S1 S2 Gastrointestinal: Normal bowel sounds, No tenderness Musculoskeletal: No tenderness Integumentary: No rashes Neurological: Normal speech, Normal strength at 5/5 x4 extr, Normal tone, Normal affect - Studies Laboratory Data (last 24 hrs) 05/04/20 21:22: PT 10.3, INR 0.87 05/04/20 21:22: WBC 5.5, Hgb 14.3, Hct 42.1, Plt Count 209 05/04/20 21:22: Sodium 142, Potassium 4.0, BUN 22 H, Creatinine 1.25, Glucose 179 H, Magnesium 2.0, Total Bilirubin 0.2, AST 15, ALT 23, Alkaline Phosphatase 82 <Corky Bray - Last Filed: 05/04/20 23:47> - Studies Laboratory Data (last 24 hrs) 05/04/20 21:22: PT 10.3, INR 0.87 05/04/20 21:22: WBC 5.5, Hgb 14.3, Hct 42.1, Plt Count 209 05/04/20 21:22: Sodium 142, Potassium 4.0, BUN 22 H, Creatinine 1.25, Glucose 179 H, Magnesium 2.0, Total Bilirubin 0.2, AST 15, ALT 23, Alkaline Phosphatase 82 <Eddie Ramirez - Last Filed: 05/05/20 11:01> Assessment and Plan - Plan Assessment Chest pain rule out ACS Hypertension Hypothyroidism Plan Chest pain rule out ACS: Monitor on telemetry, trend troponins, cardiology consult in place. Continue daily aspirin, statin, beta galileo therapy. DVT prophylaxis with Lovenox. NPO after midnight. Lipid panel with morning labs. Hypertension: Home medications continued, will adjust as necessary. Hypothyroidism: Home medications continued. Discharge Plan: Home Plan to discharge in: 24 Hours - Advance Directives Does patient have a Living Will: No Does patient have a Durable POA for Healthcare: No - Code Status/Comfort Care Code Status Assessed: Yes (Full code) Critical Care: No Time Spent Managing Pts Care (In Minutes): 55 <Corky Bray - Last Filed: 05/04/20 23:47> - Plan Case discussed in detail with nurse practitioner. Will discuss with cardiology. Anticipate possible cardiac evaluation. Await recommendations. <Eddie Ramirez - Last Filed: 05/05/20 11:01>
[2020-05-05] MEDS ORDERED: ACETAMINOPHEN 500 MG TAB PO PRN (01:56)
[2020-05-05] MEDS ORDERED: ONDANSETRON 4 MG/2 ML VIAL IV PRN (01:56)
[2020-05-05] MEDS ORDERED: MORPHINE 2 MG/ML SYR IV PRN (01:56)
[2020-05-05 02:42] VITALS: BMI 32.5
[2020-05-05] MEDS ORDERED: atenoloL 50 MG TAB PO SCH (06:00)
[2020-05-05 06:17] LABS: Absolute Lymphocytes (CBC) 1.3 K/uL (0.7-4.9); Basophils % 0.6 % (0-1.3); Hematocrit 39.2 % (39.6-49.0); Lymphocytes % 25.4 % (15.3-44.8); MPV 7.8 fL (7.6-11.3)
[2020-05-05] MEDS: LEVOTHYROXINE SOD 0.05 MG TABLET PO SCH (06:30)
[2020-05-05 06:34] LABS: Magnesium 2.1 mg/dL (1.8-2.4); Troponin I 0.05 ng/mL (0.0-0.045)
[2020-05-05] MEDS ORDERED: LEVOTHYROXINE SOD 0.05 MG TABLET ONE (06:52)
[2020-05-05] MEDS: ENOXAPARIN 40 MG/0.4 ML SQ SCH (07:45)
[2020-05-05] MEDS: ASPIRIN EC 81 MG TAB PO SCH (08:43)
[2020-05-05] MEDS: lisinopriL 20 MG TAB PO SCH (08:43)
[2020-05-05] MEDS ORDERED: HEPA 1000U/500MLS 1,000 UNIT/500 ML BAG IV ONE (08:44)
[2020-05-05] MEDS ORDERED: NA CHLORIDE 0.9% 500 ML ONE (09:58)
[2020-05-05] MEDS ORDERED: FENTANYL CITR 100 MCG/2 ML ONE (10:05)
[2020-05-05] MEDS ORDERED: ATROPINE SULF 1 MG/10 ML SYR IV ONE (10:05)
[2020-05-05] MEDS ORDERED: MIDAZOLAM HCL 2 MG/2 ML INJ ONE ×2 (10:05→10:10)
[2020-05-05] MEDS ORDERED: NA CHLORIDE 0.9% 50 ML ONE (10:06)
[2020-05-05] MEDS ORDERED: INFLUENZA VACCINE (for 3y+) 0.5 ML DOSE IMVAC ONE (11:00)
[2020-05-05] MEDS ORDERED: PRASUGREL (EFFIENT) 10 MG TAB ONE (11:03)
--- NOTE | 2020-05-05 11:03 | P.PN ---
Subjective Date of Service: 05/05/20 Primary Care Provider: Dr. Gudino (Covering for him) Chief Complaint: Chest pain Subjective: Improving Physical Examination - Vital Signs Temperature: 97 F Blood Pressure: 138/85 Pulse: 52 Respirations: 18 Pulse Ox (%): 96 - Physical Exam General: Alert, In no apparent distress, Oriented x3, Cooperative HEENT: Atraumatic Neck: Supple Respiratory: Clear to auscultation bilaterally, Normal air movement Cardiovascular: Normal pulses, Regular rate/rhythm Gastrointestinal: Normal bowel sounds, Soft and benign, Non-distended Neurological: Normal speech, Normal strength at 5/5 x4 extr, Normal tone, Normal affect - Studies Laboratory Data (last 24 hrs) 05/04/20 21:22: PT 10.3, INR 0.87 05/04/20 21:22: WBC 5.5, Hgb 14.3, Hct 42.1, Plt Count 209 05/04/20 21:22: Sodium 142, Potassium 4.0, BUN 22 H, Creatinine 1.25, Glucose 179 H, Magnesium 2.0, Total Bilirubin 0.2, AST 15, ALT 23, Alkaline Phosphatase 82 Medications List Reviewed: Yes Assessment & Plan Discharge Plan: Home Physician Review Additional Text: Assessment Chest pain rule out ACS Hypertension Hypothyroidism Plan Chest pain rule out ACS: Cardiology consulted. Await recommendations.Anticipate possible cardiac evaluation. Continue with current medications. Will monitor and adjust appropriately. Possible discharge as early as today if workup unremarkable. Hypertension: Home medications continued, will adjust for better control. Hypothyroidism: Home medications continued. Time Spent Managing Pts Care (In Minutes): 55
[2020-05-05] MEDS ORDERED: ASPIRIN 325 MG TAB ONE (11:10)
[2020-05-05 12:02] VITALS: O2SAT 95
--- NOTE | 2020-05-05 13:50 | CON ---
Date of Consultation: 05/05/2020 Reason For Consultation: Non-ST elevation myocardial infarction. History Of Present Illness: Mr. Ng is a 70-year-old white male without any previous past cardia c history except for hypertension and hypothyroidism, came in with substernal chest pressure, difficu lty breathing, left arm radiation, nausea with some diaphoresis. Denied PND, orthopnea, pedal edema, palpitation, or syncope. Symptoms lasted for about an hour, happened while he was not exerting hims elf. His troponin was abnormal. EKG was nonspecific. Past Medical History: As stated above. Allergies: NONE. Review of Systems: Negative. Social History: Negative. Family History: Positive for heart disease. Medications: Include aspirin, lisinopril, atenolol, and hydrochlorothiazide. Physical Examination: Vital Signs: Stable, afebrile. HEENT: Negative. Neck: Supple. No bruit. Chest: Clear to auscultation and percussion. Cardiac: Revealed a regular rhythm and rate. No murmu rs, gallops, or rubs. Abdomen: Benign. Extremities: Revealed no clubbing, cyanosis, or edema. Diagnostic Data: All within normal limits except for his troponin was slightly elevated at 0.05 and 0.06. His cholesterol was 203. His LDL was 136. His TSH was 5.340. He was COVID negative. His ch est x-ray was normal. Impression And Plan: 1.Non-ST elevation myocardial infarction. 2.Strong family history for heart disease. 3.Blood pressure poorly controlled. 4.Hypothyroidism. The patient will be taken to the cardiac cath technologist today rather urgently. His symptoms are worrisome. His tr oponin is positive. The risk and the benefits of the heart catheterization were explained to him in detail and he agrees to proceed. He has already been on aspirin and Lovenox which has been held. We will see what the catheterization shows before making any further decisions. DARNELL/DEMETRICE Voice ID: [id number] Report ID: [id number]
--- NOTE | 2020-05-05 14:17 | OP ---
Date of Procedure: 05/05/2020 Surgeon: Deepak Gandara MD Procedure: Left heart catheterization, selective coronary arteriogram, left ventriculogram, primary stent of the proximal RCA. Indication: Non-ST elevation myocardial infarction. History Of Present Illness: Mr. Ng is a 70-year-old was admitted on 05/04/2020 with chest pain, positive troponin. Procedure In Detail: Brought to the laboratory apparatus glass grinder today 05/05/2020 as an inpatient. He was prepped and d raped in the routine sterile fashion. Given Versed and fentanyl for sedation. A 6-Macanese sheath was introduced in the right common femoral artery successfully using the Seldinger technique and 10 cc o f Xylocaine. Angiography there was normal. Angio-Seal was used to close the case. Catheterization was done using the JL4 and JR4 catheters. He had dual ostium with the circumflex that seem to be cod ominant that had some mild plaquing. The LAD had this on ostium may need an AL1 down the road for ca nnulation but he had a 50% stenosis in the mid LAD. His RCA had a 90% stenosis in the proximal RCA w ith SHERIDAN 2 flow. This was found using a JR4 catheter. The patient was given Angiomax. He was given Effient and aspirin. The 6-Macanese sheath stayed in place. We used a JR4 guide 6-Macanese with side h ole to cannulate the RCA. We decided to intervene. A [place] wire 0.014 was used to cross the lesion successfully. Following that, a 2.5 x 20 mm Synergy stent was placed at 17 atmosphere with excellen t 0% residual. Intracoronary nitroglycerin was given before the final shot, which showed 0% residual . Patient tolerated the procedure well. There were no complications. Total Blood Loss: 5 mL. Anesthesia: Total conscious sedation was 60 minutes. Final Diagnoses: Severe coronary artery disease status post myocardial infarction, status post succe ssful primary stent of the proximal RCA. 50% LAD stenosis with his own ostium may need to be stented down the road, but for now we will see how he does. He will remain in the hospital overnight. The case was discussed with his and Dr. Ramirez. He should be on his home medication plus aspirin pl us Plavix, and 80 mg of Lipitor. Prescription was given to the family. The patient will be discharg ed in the morning and I will see him in the office in the next 2 weeks. JOSH Voice ID: [id number] Report ID: [id number]
[2020-05-05] MEDS ORDERED: ATORVASTATIN 20 MG TAB PO SCH (21:00)
--- NOTE | 2020-05-05 22:32 | EKG ---
Test Date: 2020-05-04 Test Time: 23:20:43 Casting Inspector: SANG MEASUREMENT RESULTS: Intervals: Rate: 58 SD: 172 QRSD: 96 QT: 420 QTc: 412 [place]: P: 46 SD: 172 QRS: 4 T: -2 INTERPRETIVE STATEMENTS: Sinus bradycardia Otherwise normal ECG Compared to ECG 05/04/2020 20:34:49 Sinus rhythm no longer present Electronically Signed On 05-05-20 22:29:36 PROMOTION OFFICER by Deepak Gandara
--- NOTE | 2020-05-05 22:33 | EKG ---
Test Date: 2020-05-04 Test Time: 20:34:49 Insurance Follow Up Representative: SANG MEASUREMENT RESULTS: Intervals: Rate: 66 VT: 184 QRSD: 100 QT: 406 QTc: 425 [place]: P: 43 VT: 184 QRS: 55 T: -3 INTERPRETIVE STATEMENTS: Normal sinus rhythm Normal ECG Compared to ECG 06/03/2005 12:59:00 Sinus bradycardia no longer present Electronically Signed On 05-05-20 22:29:43 MANAGER PORT by Deepak Gandara
[2020-05-06] MEDS ORDERED: NA CHLORIDE 0.9% 1,000 ML IV SCH (02:00)
[2020-05-06] MEDS: LEVOTHYROXINE SOD 0.05 MG TABLET PO SCH (05:20)
[2020-05-06] MEDS ORDERED: METOPROLOL XL 25 MG TAB PO SCH (06:00)
[2020-05-06 06:47] LABS: Absolute Lymphocytes (CBC) 1.3 K/uL (0.7-4.9); Basophils % 0.5 % (0-1.3); Hematocrit 39.5 % (39.6-49.0); Lymphocytes % 21.6 % (15.3-44.8); MPV 8.1 fL (7.6-11.3); RBC Red Blood Cell Count 4.14 M/uL (4.33-5.43)
[2020-05-06 07:12] LABS: Potassium 3.7 mmol/L (3.5-5.1)
--- NOTE | 2020-05-06 07:50 | P.DS ---
Admission Date: 05/05/20 Discharge Date: 05/06/20 Primary Care Provider: Dr. Gudino (Covering for him) Disposition: ROUTINE DISCHARGE Discharge Condition: GOOD Reason for Admission: Chest pain Consultations: Cardiology-Dr. Gandara Procedures: COVID: Negative Heart Cath: Date of Procedure: 05/05/2020 Surgeon: Deepak Gandara MD Procedure: Left heart catheterization, selective coronary arteriogram, left ventriculogram, primary stent of the proximal RCA. Indication: Non-ST elevation myocardial infarction. History Of Present Illness: Mr. Ng is a 70-year-old was admitted on 05/04/2020 with chest pain, positive troponin. Final Diagnoses: Severe coronary artery disease status post myocardial infarction, status post successful primary stent of the proximal RCA. 50% LAD stenosis with his own ostium may need to be stented down the road Medical problem list: Chest pain secondary to NSTEMI. Status post heart catheterization showing severe Coronary artery disease with successful primary stent of the proximal RCA with noted 50% LAD stenosis Hypertension Hyperlipidemia Hypothyroidism Obesity, BMI 32 Brief History of Present Illness: 70-year-old male presented to the emergency room with chest pain. NSTEMI identified. Patient admitted for further evaluation and treatment. Hospital Course: Patient presented with chest pain secondary to NSTEMI. Patient seen and evaluated by Cardiology. Cardiology recommended heart catheterization. Heart catheterization performed showed severe Coronary artery disease with successful primary stent of the proximal RCA. 50% lad stenosis noted. This may need to be stented in the near future. Patient had mild bleeding to the growing status post heart catheterization. This resolved. No significant hematoma noted. At discharge he is without chest pain. Case discussed in detail with cardiology. At discharge patient continue with aspirin 81 mg daily, Plavix 75 mg daily, Lipitor 80 mg daily, lisinopril 40 mg daily, atenolol 25 mg daily, and hydrochlorothiazide 12.5 mg daily. Recommend follow up with cardiology in 1-2 weeks to follow up this hospitalization and continue his care. Patient with hypertension. This has remained stable. As mentioned above pat ient will continue with lisinopril 40 mg daily, atenolol 25 mg daily, and hydrochlorothiazide 12.5 mg daily. Recommend to maintain blood pressure less than 130/80. Further adjustment can be done by his PCP or cardiology. Patient with hypothyroidism. At discharge patient will continue with levothyroxine 50 mcg daily. Further adjustment in his medication and monitoring can be done by his PCP. Patient with hyperlipidemia. LDL 136. As mentioned above, the patient will continue with Lipitor 80 mg daily. Recommend to recheck fasting lipid panel in 4-6 weeks to monitor his care. Patient will continue with his other supplementations including vitamin-C and folic acid. Vital Signs/Physical Exam: Temp Pulse Resp BP Pulse Ox 97.7 F 57 18 125/78 94 05/06/20 04:00 05/06/20 05:19 05/06/20 04:00 05/06/20 05:19 05/06/20 04:00 General: Alert, In no apparent distress, Oriented x3, Cooperative HEENT: Atraumatic Neck: Supple Respiratory: Clear to auscultation bilaterally, Normal air movement Cardiovascular: Normal pulses, Regular rate/rhythm Gastrointestinal: Normal bowel sounds, Soft and benign, Non-distended, No tenderness, No masses, No rebound, No guarding Musculoskeletal: No erythema, No tenderness, No warmth Neurological: Normal speech, Normal strength at 5/5 x4 extr, Normal tone, Normal affect Laboratory Data at Discharge: WBC 5.3 K/uL (4.3-10.9) 05/05/20 06:05 Hgb 13.4 g/dL (13.6-17.9) L 05/05/20 06:05 Hct 39.2 % (39.6-49.0) L 05/05/20 06:05 Plt Count 194 K/uL (152-406) 05/05/20 06:05 PT 10.3 SECONDS (9.5-12.5) 05/04/20 21:22 INR 0.87 05/04/20 21:22 Sodium 141 mmol/L (136-145) 05/06/20 05:53 Potassium 3.7 mmol/L (3.5-5.1) 05/06/20 05:53 BUN 16 mg/dL (7-18) 05/06/20 05:53 Creatinine 1.02 mg/dL (0.55-1.3) 05/06/20 05:53 Glucose 94 mg/dL (74-106) 05/06/20 05:53 Magnesium 2.1 mg/dL (1.8-2.4) 05/05/20 06:05 Total Bilirubin 0.2 mg/dL (0.2-1.0) 05/04/20 21:22 AST 15 U/L (15-37) 05/04/20 21:22 ALT 23 U/L (12-78) 05/04/20 21:22 Alkaline Phosphatase 82 U/L (45-117) 05/04/20 21:22 Troponin I 0.16 ng/mL (0.0-0.045) H 05/05/20 13:08 Triglycerides 90 mg/dL (<150) 05/05/20 06:05 Cholesterol 203 mg/dL (<200) H 05/05/20 06:05 HDL Cholesterol 49 mg/dL (40-60) 05/05/20 06:05 Cholesterol/HDL Ratio 4.14 05/05/20 06:05 Home Medications: Ascorbic Acid [Vitamin C] 2,000 mg PO DAILY 05/05/20 Atenolol [Tenormin] 25 mg PO DAILY 05/05/20 Levothyroxine [Synthroid*] 50 mcg PO [id number] 05/05/20 hydroCHLOROthiazide [Hydrochlorothiazide*] 12.5 mg PO DAILY 05/05/20 lisinopriL [Lisinopril] 40 mg PO DAILY 05/05/20 Aspirin [Aspirin EC 81 MG] 81 mg PO DAILY #90 tablet. 05/06/20 Atorvastatin Calcium [Lipitor] 80 mg PO BEDTIME #30 tab 05/06/20 Clopidogrel Bisulfate [Plavix*] 75 mg PO DAILY #30 tablet 05/06/20 Folic Acid 1 mg PO DAILY #90 tablet 05/06/20 New Medications: Aspirin [Aspirin EC 81 MG] 81 mg PO DAILY #90 tablet. Folic Acid 1 mg PO DAILY #90 tablet Atorvastatin Calcium [Lipitor] 80 mg PO BEDTIME #30 tab Clopidogrel Bisulfate [Plavix*] 75 mg PO DAILY #30 tablet Patient Discharge Instructions: Follow up with PCP in 1 week to follow up this hospitalization. Patient presented with chest pain secondary to NSTEMI. Patient seen and evaluated by Cardiology. Cardiology recommended heart catheter ization. Heart catheterization performed showed severe Coronary artery disease with successful primary stent of the proximal RCA. 50% lad stenosis noted. This may need to be stented in the near future. Patient had mild bleeding to the growing status post heart catheterization. This resolved. No significant hematoma noted. At discharge he is without chest pain. Case discussed in detail with cardiology. At discharge patient continue with aspirin 81 mg daily, Plavix 75 mg daily, Lipitor 80 mg daily, lisinopril 40 mg daily, atenolol 25 mg daily, and hydrochlorothiazide 12.5 mg daily. Recommend follow up with cardiology in 1-2 weeks to follow up this hospitalization and continue his care. Patient with hypertension. This has remained stable. As mentioned above patient will continue with lisinopril 40 mg daily, atenolol 25 mg daily, and hydrochlorothiazide 12.5 mg daily. Recommend to maintain blood pressure less than 130/80. Further adjustment can be done by his PCP or cardiology. Patient with hypothyroidism. At discharge patient will continue with levothyroxine 50 mcg daily. Further adjustment in his medication and monitoring can be done by his PCP. Patient with hyperlipidemia. LDL 136. As mentioned above, the patient will continue with Lipitor 80 mg daily. Recommend to recheck fasting lipid panel in 4-6 weeks to monitor his care. Patient will continue with his other supplementations including vitamin-C and folic acid. Diet: AHA Activity: Ad hernando Followup: Caden Allen MD [Primary Care Provider] - Time spent managing pt's care (in minutes): 55
[2020-05-06] MEDS: lisinopriL 20 MG TAB PO SCH (08:53)
[2020-05-06] MEDS: ASPIRIN EC 81 MG TAB PO SCH (08:54)
[2020-05-06 08:55] VITALS: BP 132/82
[2020-05-06] MEDS: ENOXAPARIN 40 MG/0.4 ML SQ SCH (08:56)
[2020-05-06] MEDS ORDERED: CLOPIDOGREL 75 MG TABLET PO SCH (09:00)
[2020-05-06 10:31] VITALS: TEMP 97
[2020-05-06] MEDS ORDERED: ATORVASTATIN 80 MG TAB PO SCH (21:00)
== END 2020-05-06 09:12 | disposition home or self-care (01) | DRG 247 ==
LOC: ER 20:10 → ERHOLD 23:42 → 2ND 05-05 08:27 → OBSVTOIN 05-05 13:42
PROVIDERS: ADMIT Family Medicine; ATTEND Family Medicine
PROC: 027034Z Dilation of Coronary Artery, One Artery with Drug-eluting Intraluminal Device, Percutaneous Approach (ICD-10-PCS; principal; 2020-05-05)
PROC: 4A023N7 Measurement of Cardiac Sampling and Pressure, Left Heart, Percutaneous Approach (ICD-10-PCS; 2020-05-05)
PROC: B2111ZZ Fluoroscopy of Multiple Coronary Arteries using Low Osmolar Contrast (ICD-10-PCS; 2020-05-05)
PROC: B2151ZZ Fluoroscopy of Left Heart using Low Osmolar Contrast (ICD-10-PCS; 2020-05-05)
DX: I21.4 Non-ST elevation (NSTEMI) myocardial infarction (principal); I10 Essential (primary) hypertension; I25.10 Atherosclerotic heart disease of native coronary artery without angina pectoris; E03.9 Hypothyroidism, unspecified; E66.9 Obesity, unspecified; Z68.32 Body mass index [BMI] 32.0-32.9, adult; Z96.652 Presence of left artificial knee joint; Z88.5 Allergy status to narcotic agent; Z79.890 Hormone replacement therapy; Z79.899 Other long term (current) drug therapy; Z79.02 Long term (current) use of antithrombotics/antiplatelets; Z79.82 Long term (current) use of aspirin; Z20.822 Contact with and (suspected) exposure to COVID-19
CPT/HCPCS: 0240U; 36415; 71045; 80048; 80061; 80076; 83735; 83880; 84439; 84443; 84484; 85025; 85347; 85379; 85610; 93005; 93458; 99285; C1725; C1760; C1893; C9600; G0378; J0583; J1644; J1650; J2250; J3010; J7040

== ENCOUNTER 2021-06-11 09:37 | Inpatient (IN) | payer OTHER, MEDICARE ==
--- OUTSIDE RECORDS SUMMARY | 2021-06-11 09:39 | XMS REPORT | Continuity of Care Document ---
:1950 Author Organization [facility] t Address [address] [place] [address] Care Team Providers Name Role Phone Alejandro Primary Care Physician Nurse, Pob Immunization Attending Clinician Unavailable Mariano Lino DO Attending Clinician MARIANO LINO Attending Clinician Unavailable SHYANNE Attending Clinician Unavailable Lab, Fam Pob I Attending Clinician Unavailable Shyanne PARK AIDE Attending Clinician ROBERT Attending Clinician Unavailable Payers Payer Name Policy Type Policy Number Effective Date Expiration Date S ource Problems This patient has no known problems. Allergies, Adverse Reactions, Alerts Allergy Allergy Status Severity Reaction(s) Onset Inactive Treating Comm ents Source Name Type Date Date Clinician NO KNOWN Drug Active Univers ALLERGIE Class ity of S Formerly [facility] Social History Social Habit Start Date Stop Date Quantity Comments Source Sex Assigned At [birth year] [facility] 00:00:00 00:00:00 [facility] Smoking Status Start Date Stop Date Source Unknown if ever smoked General acute hospital Medications This patient has no known medications. Immunizations Ordered Filled Immunization Date Status Comments Adry e Immunization Name Name SARS-COV-2 COVID-19 2021-01-11 Completed Unive rsity of PFIZER VACCINE 00:00:00 [facility] SARS-COV-2 COVID-19 2020-12-18 Completed Unive rsity of PFIZER VACCINE 00:00:00 [facility] Procedures Procedure Date / Time Performed Performing Clinician Adry lopez SARS-COV-2 COVID-19 2021-01-11 15:51:03 Doctor Unassigned, No [facility] [place] VACCINE,0.3ML,IM Name [facility] (PFIZER) Encounters Start End Encounter Admission Attending Care Care Encounter Source Date/Time Date/Time Type Type Clinicians Facility Department ID 2021-01-11 2021-01-11 Imm/Inj Nurse, [facility] Pob Immunization [facility] [id number] Univers 10:48:46 10:49:08 Visit Mark Lino [place] [id number] [facility] [id number] [phone] Me dical nal [address] 2021-01-09 2021-01-09 Outpatient R NAKIA [facility] [id number] Univers 08:50:00 08:50:00 MARK amy [facility] 2020-12-18 2020-12-18 [facility] [id number] Univers 11:40:00 11:40:00 MARK [facility] 2020-04-24 2020-04-24 Outpatient R [facility] [id number] Univers 18:40:00 18:40:00 [id number] [facility] 2020-04-24 2020-04-24 Outpatient R SHYANNE [facility] [id number] Univers 18:40:00 18:40:00 CANDIS [facility] 2020-04-24 2020-04-24 Laboratory Lab, [facility] Fam Pob I [facility] [id number] Univers 16:44:42 17:04:42 Only Shyanne [facility] [id number] ity [facility] [id number] [place] as Professio [phone] Me dical nal [address] 2020-04-24 2020-04-24 Laboratory Lab, [facility] [id number] 16:44:42 17:04:42 Only Fam Pob I Health [id number] [place] [id number] Professio [phone] nal [address] 2020-04-24 2020-04-24 [facility] [id number] Univers 16:40:00 16:40:00 CANDIS arrington [facility] Results Test Description Test Time Test Comments Results Result Sourc e Comments CHEST 2 VIEWS 2018-03-09 11:47:00 [facility] [address] [address] Patient Name: LILIAN DUNLAP MR #: [id number] : 1950 Age/Sex: 67/M Req #: [id number] Adm Physician: Ordered by: ERIK JONES MD Report #: [id number] Location: OR Room/Bed: Procedure: [id number] DX/CHEST 2 VIEWS Exam Date: Exam Time: [...] No acute cardiopulmonary findings. Signed by: Dr. Rommel Friend MD on 03/09/2018 11:47 AM Dictated By: ROMMEL FRIEND MD [id number] Transcribed By: OLMAN on 03/09/18 1145 COPY TO: ERIK JONES MD
[2021-06-11] MEDS ORDERED: ONDANSETRON 4 MG/2 ML VIAL ONE (10:29)
[2021-06-11] MEDS ORDERED: PANTOPRAZOLE 40 MG INJ ONE (10:29)
[2021-06-11] MEDS ORDERED: PANTOPRAZOLE INJ 80 MG in NA CHLORIDE 0.9% 250 ML IV ONE (10:30)
[2021-06-11] MEDS ORDERED: NA CHLORIDE 0.9% 1,000 ML ONE (10:30)
[2021-06-11 11:31] LABS: Absolute Lymphocytes (CBC) 1.5 K/uL (0.7-4.9); Hematocrit 33.4 % (39.6-49.0); Lymphocytes % 20.9 % (15.3-44.8); MPV 8.3 fL (7.6-11.3); RBC Red Blood Cell Count 3.43 M/uL (4.33-5.43)
[2021-06-11 11:35] LABS: Protime INR 1.13
[2021-06-11 11:45] LABS: ALT/SGPT 24 U/L (12-78); AST/SGOT 12 U/L (15-37); Albumin 3.2 g/dL (3.4-5.0); Alkaline Phosphatase 49 U/L (45-117); BUN Blood Urea Nitrogen 33 mg/dL (7-18); Bicarbonate 27 mmol/L (21-32); Bilirubin Direct < 0.1 mg/dL (0-0.2); Bilirubin Total 0.4 mg/dL (0.2-1.0); Glucose Level 124 mg/dL (74-106); Lipase 105 U/L (73-393); Potassium 3.9 mmol/L (3.5-5.1); Protein, Total 6.3 g/dL (6.4-8.2); Sodium Level 141 mmol/L (136-145)
--- NOTE | 2021-06-11 12:12 | RAD REPORT ---
EXAM DESCRIPTION: CTAbdomen Pelvis W Contrast - 06/11/2021 11:58 am CLINICAL HISTORY: melena COMPARISON: CT ABD PELVIS W CONTRAST dated 09/03/2007 TECHNIQUE: CT of the abdomen and pelvis was performed. All CT scans are performed using dose optimization technique as appropriate and may include automated exposure control or mA/KV adjustment according to patient size. FINDINGS: Lower chest: No acute abnormality. Liver: No acute abnormality or suspicious lesions. Biliary: Cholecystectomy Stomach: Small hiatal hernia. Duodenum: No significant focal abnormality. Pancreas: No significant abnormality. Spleen: No significant abnormality. Adrenal: No suspicious lesions. Kidney/ureter: No hydronephrosis. No renal calculi. Too small to characterize and/or benign appearing renal lesions are noted. Retroperitoneum: No retroperitoneal adenopathy. Vascular: No aneurysm. Bowel: Inflammatory changes which are mild along the proximal sigmoid. There is a thickened diverticu lar concerning for acute diverticulitis. No perforation or abscess.. Peritoneum: No ascites or free air. Bladder: Grossly unremarkable. Reproductive: No adnexal masses. Bones: No acute fracture. Other: n/a IMPRESSION: Mild or early acute sigmoid diverticulitis without perforation or abscess.
[2021-06-11] MEDS ORDERED: METRONIDAZOLE 500mg IVPB 500 MG/100 ML BAG IV ONE (12:20)
[2021-06-11] MEDS ORDERED: CIPROFLOXACIN 400mg IV 400 MG/200 ML BAG IV ONE (12:20)
--- NOTE | 2021-06-11 12:49 | ER ---
Nurse's Notes [facility] Name: Seth Ng Age: 71 yrs Sex: Male : 1950 Arrival Date: 06/11/2021 Time: 09:39 Bed 3 Private MD: Caden Allen Diagnosis: Melena;Diverticulitis of large intestine without perforation or abscess with bleeding Presentation: 06/11 09:57 Onset of symptoms was June 10, 2021. ll1 09:57 Acuity: NEO 2 ll1 10:00 Chief complaint: Patient states: SYNCOPE THIS AM AND RECENT MELENIC STOOLS. Coronavirus bp screen: At this time, the client does not indicate any symptoms associated with coronavirus-19. Ebola Screen: No symptoms or risks identified at this time. Initial Sepsis Screen: Does the patient meet any 2 criteria? HR > 90 bpm. No. Patient's initial sepsis screen is negative. Does the patient have a suspected source of infection? No. Patient's initial sepsis screen is negative. Risk Assessment: Do you want to hurt yourself or someone else? Patient reports no desire to harm self or others. 10:00 Method Of Arrival: Ambulatory bp Triage Assessment: 10:00 General: Appears in no apparent distress. uncomfortable, Behavior is cooperative, bp appropriate for age, anxious. Pain: Denies pain. EENT: No deficits noted. Neuro: Level of Consciousness is awake, alert, obeys commands, Oriented to Appropriate for age. Cardiovascular: Rhythm is sinus tachycardia. Respiratory: No deficits noted. GI: Reports BLACK, TARRY STOOLS. : No signs and/or symptoms were reported regarding the genitourinary system. Derm: No deficits noted. Musculoskeletal: No deficits noted. Historical: - Allergies: 09:56 No Known Allergies; ll1 - PMHx: 09:56 Hypertension; Thyroid problem; ll1 - PSHx: 09:56 heart stent; ll1 - Immunization history:: Client reports receiving the 2nd dose of the Covid vaccine. - Social history:: Smoking status: Patient denies any tobacco usage or history of. - Family history:: not pertinent. - Hospitalizations: : No recent hospitalization is reported. Screenin:00 Abuse screen: Denies threats or abuse. Denies injuries from another. Nutritional bp screening: No deficits noted. Tuberculosis screening: No symptoms or risk factors identified. Fall Risk None identified. Assessment: 10:00 General: SEE TRIAGE NOTE. bp 12:00 Reassessment: No changes from previously documented assessment. Patient and/or family bp updated on plan of care and expected duration. Pain level reassessed. 14:00 Reassessment: No changes from previously documented assessment. Patient and/or family bp updated on plan of care and expected duration. Pain level reassessed. ADMIT INITIATED. 16:00 Reassessment: No changes from previously documented assessment. Patient and/or family bp updated on plan of care and expected duration. Pain level reassessed. ADMIT IN PROCESS. 17:00 Reassessment: REPORT TO MISSAEL CONWAY FOR RM 215. bp Vital Signs: 10:00 BP 92 / 68; Pulse 101; Resp 17; Temp 98; Pulse Ox 97% ; bp 11:05 BP 97 / 53; Pulse 91; Resp 16; Pulse Ox 98% ; bp 12:00 BP 113 / 69; Pulse 86; Resp 18; Pulse Ox 98% ; bp 13:00 BP 119 / 75; Pulse 84; Resp 16; Pulse Ox 96% ; bp 14:00 BP 94 / 70; Pulse 83; Resp 20; Pulse Ox 98% ; bp 15:00 BP 117 / 78; Pulse 81; Resp 14; Pulse Ox 100% ; bp 16:00 BP 121 / 73; Pulse 80; Resp 14; Pulse Ox 99% ; bp 17:00 BP 129 / 73; Pulse 82; Resp 14; Pulse Ox 100% ; bp ED Course: 09:39 Patient arrived in ED. as 09:39 Caden Allen MD is Private Physician. as 09:57 Triage completed. ll1 09:57 Arm band placed on Patient placed in an exam room, on a stretcher. ll1 10:00 Patient has correct armband on for positive identification. Bed in low position. Call bp light in reach. Side rails up X2. 10:03 Quincy Hewitt MD is Attending Physician. rn 10:16 Kevin Chilel, MAN is Primary Nurse. bp 10:31 EKG done, by ED staff, reviewed by Quincy Hewitt MD. mb7 11:05 Inserted saline lock: 20 gauge in left wrist, using aseptic technique. Blood collected. bp 11:58 CT Abd/Pelvis - IV Contrast Only In Process Unspecified. EDMS 12:49 Bijan Mares is Hospitalizing Provider. rn 17:00 No provider procedures requiring assistance completed. Patient admitted, IV remains in bp place. Administered Medications: 11:00 Drug: NS 0.9% 1000 ml Route: IV; Rate: 1000 ml; Site: left wrist; bp 11:00 Drug: ProTONIX (pantoprazole) 40 mg Route: IVP; Site: left wrist; bp 14:30 Follow up: Response: No adverse reaction bp 11:00 Drug: Zofran (Ondansetron) 4 mg Route: IVP; Site: left wrist; bp 11:27 Drug: ProTONIX (pantoprazole) 8 mg/hr Route: IV; Rate: 25 ml/hr; Site: left wrist; bp 12:30 Drug: Flagyl (metroNIDAZOLE) 500 mg Volume: 100 ml; Route: IVPB; Rate: 200 ml/hr; bp Infused Over: 30 mins; Site: left antecubital; 13:10 Drug: Cipro (ciprofloxacin) 400 mg Volume: 200 ml; Route: IVPB; Infused Over: 60 mins; bp Site: left antecubital; Outcome: 12:49 Decision to Hospitalize by Provider. rn 17:00 Admitted to Med/surg accompanied by tech, family with patient, via wheelchair, room bp 215, with chart, Report called to MISSAEL CONWAY 17:00 Condition: stable 17:00 Instructed on the need for admit. 17:31 Patient left the ED. mb7 Signatures: Dispatcher [employer] Blessing Shell Roman, MD MD rn Peltier, Brian, RN RN bp Lewis, Lynsay, RN RN Jennifer Hand7
--- NOTE | 2021-06-11 12:50 | EDPHYS ---
Physician Documentation [facility] Name: Seth Ng Age: 71 yrs Sex: Male : 1950 Arrival Date: 06/11/2021 Time: 09:39 Bed 3 Private MD: Caden Allen ED Physician Quincy Hewitt HPI: 06/11 11:19 This 71 yrs old Male presents to ER via Ambulatory with complaints of Black/Tarry rn Stools,syncope. 11:19 The patient presents to the emergency department with rectal bleeding, a moderate rn amount, melena, with multiple such episodes. Onset: The symptoms/episode began/occurred yesterday. Abdominal pain: described as achy, located in the left lower quadrant, that does not radiate. Modifying factors: The symptoms are alleviated by nothing, the symptoms are aggravated by nothing. Associated signs and symptoms: Pertinent positives: dizziness when standing, syncope, Pertinent negatives: fever. Severity of symptoms: At their worst the symptoms were moderate in the emergency department the symptoms are unchanged. The patient has not experienced similar symptoms in the past. The patient has not recently seen a physician. Also takes aspirin and plavix.. Historical: - Allergies: 09:56 No Known Allergies; ll1 - PMHx: 09:56 Hypertension; Thyroid problem; ll1 - PSHx: 09:56 heart stent; ll1 - Immunization history:: Client reports receiving the 2nd dose of the Covid vaccine. - Social history:: Smoking status: Patient denies any tobacco usage or history of. - Family history:: not pertinent. - Hospitalizations: : No recent hospitalization is reported. ROS: 11:19 Constitutional: Negative for fever, chills, and weight loss, Eyes: Negative for injury, rn pain, redness, and discharge, Neck: Negative for injury, pain, and swelling, Cardiovascular: Negative for chest pain, palpitations, and edema, Respiratory: Negative for shortness of breath, cough, wheezing, and pleuritic chest pain, Abdomen/GI: + melena, negative for hematemesis Back: Negative for injury and pain, MS/Extremity: Negative for injury and deformity, Skin: Negative for injury, rash, and discoloration, Neuro: Negative for headache, numbness, tingling, and seizure. Exam: 11:19 Constitutional: This is a well developed, well nourished patient who is awake, alert, rn and in no acute distress. Head/Face: Normocephalic, atraumatic. Eyes: Periorbital areas with no swelling, redness, or edema. Cardiovascular: Regular rate and rhythm. No pulse deficits. Respiratory: No increased work of breathing, no retractions or nasal flaring. Abdomen/GI: Soft, mild left sided tenderness, no mass Skin: Warm, dry MS/ Extremity: Pulses equal, no cyanosis Neuro: Awake and alert, GCS 15 Vital Signs: 10:00 BP 92 / 68; Pulse 101; Resp 17; Temp 98; Pulse Ox 97% ; bp 11:05 BP 97 / 53; Pulse 91; Resp 16; Pulse Ox 98% ; bp 12:00 BP 113 / 69; Pulse 86; Resp 18; Pulse Ox 98% ; bp 13:00 BP 119 / 75; Pulse 84; Resp 16; Pulse Ox 96% ; bp 14:00 BP 94 / 70; Pulse 83; Resp 20; Pulse Ox 98% ; bp 15:00 BP 117 / 78; Pulse 81; Resp 14; Pulse Ox 100% ; bp 16:00 BP 121 / 73; Pulse 80; Resp 14; Pulse Ox 99% ; bp 17:00 BP 129 / 73; Pulse 82; Resp 14; Pulse Ox 100% ; bp MDM: 10:03 Patient medically screened. rn 12:46 Differential diagnosis: gastritis, gastric/duodenal ulcer. Data reviewed: vital signs, rn nurses notes, lab test result(s), radiologic studies, CT scan, and as a result, I will admit patient. Counseling: I had a detailed discussion with the patient and/or guardian regarding: the historical points, exam findings, and any diagnostic results supporting the discharge/admit diagnosis, lab results, radiology results, the need for further work-up and treatment in the hospital. Response to treatment: the patient's symptoms have mildly improved after treatment, and as a result, I will admit patient. Admission orders: after a detailed discussion of the patient's condition and case, the admit orders are written by me. ED course: Pt with hemoglobin 11, BP borderline but improving, no further episodes of melena in ER. CT shows diverticulitis without perforation, will admit for abx and GI consultation as may have 2 processes going on at same time. . 06/11 10:15 Order name: Basic Metabolic Panel; Complete Time: 12:00 rn 06/11 10:15 Order name: CBC with Diff; Complete Time: 12:00 rn 06/11 10:15 Order name: Hepatic Function; Complete Time: 12:00 rn 06/11 10:15 Order name: Lipase; Complete Time: 12:00 rn 06/11 10:15 Order name: Type And Screen; Complete Time: 12:00 rn 06/11 10:15 Order name: Troponin High Sensitivity; Complete Time: 12:00 rn 06/11 10:15 Order name: CT Abd/Pelvis - IV Contrast Only; Complete Time: 12:14 rn 06/11 10:22 Order name: Protime (+inr); Complete Time: 12:00 bp 06/11 10:22 Order name: Ptt, Activated; Complete Time: 12:00 bp 06/11 10:22 Order name: SARS-COV-2 RT PCR (Document "Date of Onset" if Symptomatic); Complete Time: bp 12:00 06/11 13:08 Order name: ABO/RH no charge; Complete Time: 13:56 EDMS 06/11 10:15 Order name: IV Saline Lock; Complete Time: 11:06 rn 06/11 10:15 Order name: Labs collected and sent; Complete Time: 11:06 rn 06/11 10:15 Order name: EKG; Complete Time: 10:16 rn 06/11 10:15 Order name: EKG - Nurse/Tech; Complete Time: 10:32 rn 06/11 10:16 Order name: Cardiac monitoring; Complete Time: 11:05 rn Administered Medications: 11:00 Drug: NS 0.9% 1000 ml Route: IV; Rate: 1000 ml; Site: left wrist; bp 11:00 Drug: ProTONIX (pantoprazole) 40 mg Route: IVP; Site: left wrist; bp 14:30 Follow up: Response: No adverse reaction bp 11:00 Drug: Zofran (Ondansetron) 4 mg Route: IVP; Site: left wrist; bp 11:27 Drug: ProTONIX (pantoprazole) 8 mg/hr Route: IV; Rate: 25 ml/hr; Site: left wrist; bp 12:30 Drug: Flagyl (metroNIDAZOLE) 500 mg Volume: 100 ml; Route: IVPB; Rate: 200 ml/hr; bp Infused Over: 30 mins; Site: left antecubital; 13:10 Drug: Cipro (ciprofloxacin) 400 mg Volume: 200 ml; Route: IVPB; Infused Over: 60 mins; bp Site: left antecubital; Disposition Summary: 06/11/21 12:49 Hospitalization Ordered Hospitalization Status: Inpatient Admission rn Provider: Bijan Mares rn Location: Telemetry/MedSurg (Inpatient) rn Condition: Stable rn Problem: new rn Symptoms: have improved rn Bed/Room Type: Standard rn Room Assignment: [facility](06/11/21 15:49) dw Diagnosis - Melena rn - Diverticulitis of large intestine without perforation or abscess with bleeding rn Forms: - Medication Reconciliation Form rn - SBAR form rn Signatures: Dispatcher [employer] Barbara Dow RN RN Quincy Pacheco MD MD rn Peltier, Brian, RN RN bp Lewis, Lynsay, RN RN ll1 Corrections: (The following items were deleted from the chart) 15:49 12:49 rn deirdre
--- NOTE | 2021-06-11 13:47 | P.HP ---
Certification for Inpatient Patient admitted to: Inpatient With expected LOS: >2 Midnights Practitioner: I am a practitioner with admitting privileges, knowledge of patient current condition, hospital course, and medical plan of care. Services: Services provided to patient in accordance with Admission requirements found in Title 42 Section 412.3 of the Code of Federal Regulations Patient History Date of Service: 06/11/21 Reason for admission: Melena History of Present Illness: 71-year-old with a history of hypertension and hypothyroidism presented to the emergency department due to melena of a couple of days duration. Symptoms associated with abdominal discomfort. He has a history of GERD and takes Tums occasionally for abdominal discomfort. He denies any GI bleed in the past. He denies history of hemorrhoid. CT abdomen and pelvis done in the ED demonstrated mild or early sigmoid diverticulitis without perforation. There is a concern patient has upper GI bleed. He has mild anemia. He denies any pain at the moment. Patient is admitted for further management. Allergies codeine Adverse Reaction (Mild, Verified 01/11/13 14:29) migraine Home Medications: Ascorbic Acid [Vitamin C] 1,000 mg PO DAILY 05/05/20 Levothyroxine [Synthroid*] 50 mcg PO [id number] 05/05/20 hydroCHLOROthiazide [Hydrochlorothiazide*] 12.5 mg PO DAILY 05/05/20 lisinopriL [Lisinopril] 40 mg PO DAILY 05/05/20 Aspirin [Aspirin EC 81 MG] 81 mg PO DAILY #90 tablet. 05/06/20 Atorvastatin Calcium [Lipitor] 80 mg PO BEDTIME #30 tab 05/06/20 Clopidogrel Bisulfate [Plavix*] 75 mg PO DAILY #30 tablet 05/06/20 L Lysine 1,000 mg PO DAILYPRN PRN 06/11/21 - Past Medical/Surgical History Diabetic: No -: HTN -: Hypothyroidism -: Left knee arthroscopy x2 -: Bialteral carpal tunnel release -: diaphragmatic and hiatal hernai repair Psychosocial/ Personal History: Patient lives with family - Family History Father -: Hypertension Mother -: Heart disease - Social History Smoking Status: Never smoker Alcohol use: No CD- Drugs: No Caffeine use: Yes Review of Systems Other: Except as documented, all other systems reviewed and negative. Physical Examination - Physical Exam General: Alert, In no apparent distress, Oriented x3 HEENT: PERRLA, Mucous membr. moist/pink, EOMI, Sclerae nonicteric Neck: Supple, JVD not distended Respiratory: Clear to auscultation bilaterally, Normal air movement Cardiovascular: No edema, Regular rate/rhythm, Normal S1 S2 Capillary refill: <2 Seconds Gastrointestinal: Normal bowel sounds, Soft and benign, Non-distended, No tenderness Musculoskeletal: No swelling, No tenderness Integumentary: No rashes, No erythema, No cyanosis Neurological: Normal speech, Normal strength at 5/5 x4 extr, Cranial nerves 3-12 intact Lymphatics: No axilla or inguinal lymphadenopathy - Studies Laboratory Data (last 24 hrs) 06/11/21 11:03: PT 13.0 H, INR 1.13, APTT 28.8 06/11/21 11:03: WBC 7.10, Hgb 11.0 L, Hct 33.4 L, Plt Count 205 06/11/21 11:03: Sodium 141, Potassium 3.9, BUN 33 H, Creatinine 1.11, Glucose 124 H, Total Bilirubin 0.4, AST 12 L, ALT 24, Alkaline Phosphatase 49, Lipase 105 Assessment and Plan - Problems (Diagnosis) (1) Melena Current Visit: Yes Status: Acute (2) GERD (gastroesophageal reflux disease) Current Visit: Yes Status: Acute (3) Hypertension Current Visit: Yes Status: Acute (4) Hypothyroidism Current Visit: Yes Status: Acute - Plan Admit patient to the medical floor. Treat with IV Protonix 40 mg twice daily. Consult to gastroenterology. Monitor H&H Monitor CBC. Reconcile and continue home medications. Keep n.p.o. at midnight. - Advance Directives Does patient have a Living Will: No Does patient have a Durable POA for Healthcare: No
[2021-06-11] MEDS ORDERED: D5 0.45 NS 1,000 ML IV SCH (17:30)
[2021-06-11] MEDS ORDERED: NA CHLORIDE 0.9% 250 ML IV SCH (17:30)
[2021-06-11] MEDS ORDERED: ACETAMINOPHEN 500 MG TAB PO PRN (17:30)
[2021-06-11] MEDS: METRONIDAZOLE 500mg IVPB 500 MG/100 ML BAG IV SCH (17:47)
[2021-06-11 18:00] VITALS: BMI 31.8
[2021-06-11 18:31] LABS: Hematocrit 31.2 % (39.6-49.0)
[2021-06-11] MEDS: CIPROFLOXACIN 400mg IV 400 MG/200 ML BAG IV SCH (21:07)
[2021-06-11] MEDS: PANTOPRAZOLE 40 MG INJ IVP SCH (21:07)
[2021-06-12] MEDS: METRONIDAZOLE 500mg IVPB 500 MG/100 ML BAG IV SCH ×2 (00:51→09:22)
[2021-06-12 05:43] LABS: Absolute Lymphocytes (CBC) 1.3 K/uL (0.7-4.9); Hematocrit 29.1 % (39.6-49.0); Lymphocytes % 23.5 % (15.3-44.8); MPV 7.9 fL (7.6-11.3); RBC Red Blood Cell Count 2.97 M/uL (4.33-5.43)
[2021-06-12 05:48] LABS: Protime INR 1.17
[2021-06-12 05:54] LABS: Potassium 3.9 mmol/L (3.5-5.1)
[2021-06-12] MEDS: CIPROFLOXACIN 400mg IV 400 MG/200 ML BAG IV SCH (09:22)
[2021-06-12] MEDS: PANTOPRAZOLE 40 MG INJ IVP SCH (09:23)
--- NOTE | 2021-06-12 10:18 | EKG ---
Test Date: 2021-06-11 Test Time: 10:27:24 Sanitation Engineer: ZOILA MEASUREMENT RESULTS: Intervals: Rate: 99 MD: 168 QRSD: 88 QT: 348 QTc: 446 Trilla: P: 49 MD: 168 QRS: 58 T: 7 INTERPRETIVE STATEMENTS: Normal sinus rhythm Low voltage QRS Borderline ECG Compared to ECG 05/04/2020 23:20:43 Low QRS voltage now present Sinus bradycardia no longer present Electronically Signed On 06-12-21 10:14:44 JEWEL GAUGER by Deepak Gandara
[2021-06-12] MEDS ORDERED: Ringers Lactate 1,000 ML IV ONE (11:16)
[2021-06-12] MEDS ORDERED: propofoL 200 MG/20 ML VIAL IV ONE (11:51)
[2021-06-12 12:22] VITALS: BP 97/61; TEMP 97.8; O2SAT 98
--- NOTE | 2021-06-12 12:38 | P.DS ---
Admission Date: 06/11/21 Discharge Date: 06/12/21 Disposition: ROUTINE DISCHARGE Discharge Condition: FAIR Reason for Admission: Melena - Problems (1) Melena Status: Acute (2) GERD (gastroesophageal reflux disease) Status: Acute (3) Hypertension Status: Acute (4) Hypothyroidism Status: Acute Brief History of Present Illness: 71-year-old with a history of hypertension and hypothyroidism presented to the emergency department due to melena of a couple of days duration. Symptoms associated with abdominal discomfort. He has a history of GERD and takes Tums occasionally for abdominal discomfort. He denies any GI bleed in the past. He denies history of hemorrhoid. CT abdomen and pelvis done in the ED demonstrated mild or early sigmoid diverticulitis without perforation. There is a concern patient has upper GI bleed. He has mild anemia. He denies any pain at the moment. Patient is admitted for further management. Hospital Course: Admitted to the medical floor, started on IV Protonix and IV fluid. He was seen and evaluated by GI Dr. Ron who performed EGD. EGD demonstrated an ulcer in the gastroesophageal junction with clean base, no bleeding. His melena could be related to this ulcer. Patient also diagnosed with acute diverticulitis and treated with antibiotics. Dr. Khan recommend outpatient colonoscopy within 4 weeks. There was mild drop in hemoglobin but stable, patient is currently asymptomatic and deemed stable for discharge. Vital Signs/Physical Exam: Temp Pulse Resp BP Pulse Ox 97.8 F 81 17 97/61 97 06/12/21 12:21 06/12/21 12:21 06/12/21 12:21 06/12/21 12:21 06/12/21 04:00 General: Alert, In no apparent distress, Oriented x3 HEENT: Mucous membr. moist/pink Neck: JVD not distended Respiratory: Clear to auscultation bilaterally, Normal air movement Cardiovascular: No edema, Regular rate/rhythm, Normal S1 S2 Gastrointestinal: Soft and benign, Non-distended, No tenderness Musculoskeletal: No swelling Integumentary: No rashes, No erythema Neurological: Normal strength at 5/5 x4 extr Laboratory Data at Discharge: WBC 5.40 K/uL (4.3-10.9) D 06/12/21 05:03 Hgb 9.9 g/dL (13.6-17.9) L 06/12/21 05:03 Hct 29.1 % (39.6-49.0) L 06/12/21 05:03 Plt Count 173 K/uL (152-406) 06/12/21 05:03 PT 13.5 SECONDS (9.5-12.5) H 06/12/21 05:03 INR 1.17 06/12/21 05:03 APTT 28.8 SECONDS (24.3-36.9) 06/11/21 11:03 Sodium 141 mmol/L (136-145) 06/12/21 05:03 Potassium 3.9 mmol/L (3.5-5.1) 06/12/21 05:03 BUN 19 mg/dL (7-18) H 06/12/21 05:03 Creatinine 1.07 mg/dL (0.55-1.3) 06/12/21 05:03 Glucose 137 mg/dL (74-106) H 06/12/21 05:03 Total Bilirubin 0.4 mg/dL (0.2-1.0) 06/11/21 11:03 AST 12 U/L (15-37) L 06/11/21 11:03 ALT 24 U/L (12-78) 06/11/21 11:03 Alkaline Phosphatase 49 U/L (45-117) 06/11/21 11:03 Lipase 105 U/L (73-393) 06/11/21 11:03 Home Medications: Ascorbic Acid [Vitamin C] 1,000 mg PO DAILY 05/05/20 Levothyroxine [Synthroid*] 50 mcg PO [id number] 05/05/20 hydroCHLOROthiazide [Hydrochlorothiazide*] 12.5 mg PO DAILY 05/05/20 lisinopriL [Lisinopril] 40 mg PO DAILY 05/05/20 Aspirin [Aspirin EC 81 MG] 81 mg PO DAILY #90 tablet. 05/06/20 Atorvastatin Calcium [Lipitor] 80 mg PO BEDTIME #30 tab 05/06/20 Clopidogrel Bisulfate [Plavix*] 75 mg PO DAILY #30 tablet 05/06/20 L Lysine 1,000 mg PO DAILYPRN PRN 06/11/21 Ciprofloxacin HCl [Cipro 500 MG Tablet] 500 mg PO BID #10 tab 06/12/21 Pantoprazole [Protonix Tab] 40 mg PO BID #60 tab 06/12/21 metroNIDAZOLE [Flagyl] 500 mg PO Q8H #15 tablet 06/12/21 New Medications: Ciprofloxacin HCl [Cipro 500 MG Tablet] 500 mg PO BID #10 tab metroNIDAZOLE [Flagyl] 500 mg PO Q8H #15 tablet Pantoprazole [Protonix Tab] 40 mg PO BID #60 tab Diet: AHA Followup: Caden Allen MD [Primary Care Provider] - Ej Khan MD [ACTIVE - CAN ADMIT] -
--- NOTE | 2021-06-15 01:16 | OP ---
Surgeon: Ej Khan MD Procedure To Be Performed: Endoscopy. Indication For Procedure: Melena, suspected upper GI bleed. Plan For Anesthesia: Monitored anesthesia care. Complexity: Average. Technique: After obtaining informed consent from the patient, explaining risks and complications, wh ich include but are not limited to bleeding, infection, perforation, and anesthesia complication, pat ient was placed in a left lateral position and sedation was given. From then on, the scope was advan alfonso into the mouth and carefully guided up until the second portion of the duodenum. After completio n of examination, scope and equipment were withdrawn and procedure terminated in a safe manner. Findings: In the proximal esophagus just at the upper esophageal sphincter, a benign-appearing stric ture was noted. This was gently passed through the scope. In the distal esophagus, there was eviden ce of LA grade A esophagitis. Just distal to the GE junction in the gastric cardia and fundus region , there was a cratered, but clean base ulcer that was visualized. Biopsies were taken. Mucosa in th e antrum and body was erythematous. This was biopsied. Duodenum, bulb, and second portion appeared normal. Complications: None. Tolerance To Anesthesia: Excellent. Postoperative Diagnoses: Esophageal stenosis, proximal gastric ulcer, gastritis. Plan: 1.Await pathology results. 2.Oral PPI b.i.d. for 1 month and then once a day. 3.Avoid NSAIDs. 4.Repeat EGD in 4-6 weeks. 5.The patient needs to follow up also because he has recent diverticulitis. We will need a colonosc opy in 6 weeks' time. In regard to the upper endoscopy when we repeat the endoscopy in 4 weeks, we c an schedule for dilation as well. US/MODL Voice ID: [id number] Report ID: [id number]
== END 2021-06-12 13:34 | disposition home or self-care (01) | DRG 391 ==
LOC: ER 09:37 → ERHOLD 13:37 → INTOOBSV 13:37 → 2ND 17:11 → OBSVTOIN 18:01
PROVIDERS: ADMIT Internal Medicine; ATTEND Internal Medicine
PROC: 0DB48ZX Excision of Esophagogastric Junction, Via Natural or Artificial Opening Endoscopic, Diagnostic (ICD-10-PCS; principal; 2021-06-12 11:00)
DX: K57.32 Diverticulitis of large intestine without perforation or abscess without bleeding (principal); K25.4 Chronic or unspecified gastric ulcer with hemorrhage; D64.9 Anemia, unspecified; K21.9 Gastro-esophageal reflux disease without esophagitis; K22.2 Esophageal obstruction; K20.90 Esophagitis, unspecified without bleeding; I10 Essential (primary) hypertension; E03.9 Hypothyroidism, unspecified; Z20.822 Contact with and (suspected) exposure to COVID-19
CPT/HCPCS: 36415; 74177; 80048; 80076; 83690; 84484; 85014; 85018; 85025; 85610; 85730; 86850; 86900; 86901; 88305; 88312; 93005; 99285; C9113; J0744; J2405; J2704; J7030; J7050; J7120; J7799; Q9967; U0003

== ENCOUNTER 2021-12-16 01:57 | Inpatient (IN) | payer OTHER, MEDICARE ==
--- OUTSIDE RECORDS SUMMARY | 2021-12-16 02:00 | XMS REPORT | Continuity of Care Document ---
:1950 Author Organization [facility] t Address [address] [place] [address] Care Team Providers Name Role Phone Caden Allen Primary Care Physician Gerry Pandey Attending Clinician Unavailable Ricky Attending Clinician Unavailable Gerry Pandey Attending Clinician [phone] Nurse, Adc Pob Immunization Attending Clinician Unavailable Mark Lino DO Attending Clinician MARK LINO Attending Clinician Unavailable KRISTEN KIMBLE Attending Clinician Unavailable Lab, Adc Fam Pob I Attending Clinician Unavailable Kristen Wu Attending Clinician ERIK JONES Attending Clinician Unavailable Gerry Pandey Admitting Clinician Unavailable Ricky Admitting Clinician Unavailable Payers Payer Name Policy Type Policy Number Effective Date Expiration Date S car[place]IC[place]: [id number] 2017 [employer] 00:00:00 [facility] [id number] 2020 OPTIONS (MEDICARE 00:00:00 SUPPLEMENT) Problems This patient has no known problems. Allergies, Adverse Reactions, Alerts Allergy Allergy Status Severity Reaction(s) Onset Inactive Treating Comm ents Source Name Type Date Date Clinician No Known DA Active U [facility] -13 [facility]ie 00:00: [facility] No Known DA Active [facility] Allergie 6-22 [place] [facility] 00[facility] NO KNOWN Drug Active Univers ALLERGIE Class ity of S [facility] Social History Social Habit Start Date Stop Date Quantity Comments Source Sex Assigned At [birth year] [facility] 00:00:00 00:00:00 [facility] Smoking Status Start Date Stop Date Source Unknown if ever smoked [facility] Medications This patient has no known medications. Immunizations Ordered Filled Immunization Date Status Comments Sourc e Immunization Name Name SARS-COV-2 COVID-19 2021-01-11 Completed Unive rsity of PFIZER VACCINE 00:00:00 [facility] SARS-COV-2 COVID-19 2020-12-18 Completed Unive rsity of PFIZER VACCINE 00:00:00 [facility] Procedures Procedure Date / Time Performed Performing Clinician Adry e SARS-COV-2 COVID-19 2021-01-11 15:51:03 Doctor Unassigned, No [facility] [place] VACCINE,0.3ML,IM Name Medical Branch (PFIZER) Encounters Start End Encounter Admission Attending Care Care Encounter Source Date/Time Date/Time Type Type Clinicians Facility Department ID 2022-01-15 Inpatient ASHER Pandey [facility] [id number] [facility] 07:30:00 Gerry 64 [place] [facility] 2021-11-07 Inpatient KELSEY OrozcoFLORY SURG [id number] [facility] 10:00:00 Gerry [id number] [place] [facility] 2021-11-08 2021-11-08 Outpatient FOG_Burke_R AOSM AOSM [id number] [place] 12:44:00 12:44:00 Nany [id number] [facility] 2021-11-07 2021-11-07 Outpatient KELSEY OrozcoFLORY [facility] [id number] [facility] 00:00:00 23:59:00 Gerry 39 [place] [facility] 2021-11-07 2021-11-07 Outpatient KELSEY PandeySURJIT LABO [id number] [facility] 16:12:00 16:12:00 Gerry 29 [facility] 2021-10-25 2021-10-25 Outpatient FOG_Burke_R AOSM AOSM [id number] [place] 02:53:00 02:53:00 Nany [id number] Orth[facility] e 2021-10-25 2021-10-25 Outpatient MARYLOU Pandey AOSM [id number] 00:00:00 00:00:00 Gerry Lopes [id number] 2021-10-15 2021-10-15 Outpatient FOG_Burke_R AOSM AOSM [id number] [place] 03:03:00 03:03:00 obEugene [id number] Orth[facility] Medicin e 2021-10-15 2021-10-15 Outpatient FOG_Burke_R AOSM AOSM [id number] [place] 03:03:00 03:03:00 Nany [id number] Ortho pe dic Sports Medicin e 2021-10-15 2021-10-15 Outpatient FOG_Burke_R AOSM AOSM [id number] [place] 03:03:00 03:03:00 Nany [id number] Ortho pe dic Sports Medicin e 2021-01-11 2021-01-11 Imm/Inj Nurse, Adc Pob Immunization [facility] [id number] Univers 10:48:46 10:49:08 Visit Mark Lino [id number] .10 [facility] [id number] Ashley rangel Professio [phone] Md dical [address] 2021-01-09 2021-01-09 Outpatient R NAKIA [facility] [id number] Univers 08:50:00 08:50:00 MAKR arrington [facility] 2020-12-18 2020-12-18 Outpatient R NAKIA [facility] [id number] Univers 11:40:00 11:40:00 MARK arrington [facility] 2020-04-24 2020-04-24 Outpatient R [facility] [id number] Univers 18:40:00 18:40:00 [id number] nury [facility] 2020-04-24 2020-04-24 Outpatient R SHYANNE [facility] [id number] Univers 18:40:00 18:40:00 [facility] 2020-04-24 2020-04-24 Laboratory Lab, [facility] [id number] 16:44:42 17:04:42 Only Fam Pob I Health [id number] [place] [id number] Professio [phone] [place] [address] [address] 2020-04-24 2020-04-24 Laboratory Lab, [facility] Fam Pob I [facility] [id number] [facility] 16:44:42 17:04:42 Only Shyanne Kristen [facility] [id number] ity of [place] [id number] Frank as Professio [phone] Me dical [address] 2020-04-24 2020-04-24 Outpatient R SHYANNE [facility] [id number] [facility] 16:40:00 16:40:00 [facility] Results Test Description Test Time Test Comments Results Result Comments Source COMPREHENSIVE METABOLIC PANEL 2021-11-07 13:10:00 Test Item Value Reference Range Interpretation Comme nts SODIUM (test code = NA) 143 mmol/L 136-145 N POTASSIUM (test code = K) 4.6 mmol/L 3.5-5.1 N CHLORIDE (test code = CL) 103.0 mmol/L 98-107 N CARBON DIOXIDE (test code = CO2) 28.5 mmol/L 21-32 N GLUCOSE (test code = GLU) 100 mg/dL 70-110 N BLOOD UREA NITROGEN (test code = 22 mg/dL 7-18 H BUN) GLOMERULAR FILTRATION RATE (test 69.3 >60 Unit of measure: mL/min/1.73 code = GFR) [id number] Ran ge:Healthy Adults >90 mL/m in/1.73 m2 For Chronic Kid donna Disease: Stage II Mild D ecrease in GFR 60-90 Stage III Moderate Decrease in GFR 30-59 Stage IV Severe Decre ase in GFR 15-29 Stage V K idney Failure <15 CREATININE (test code = CREAT) 1.06 mg/dL 0.55-1.30 N TOTAL PROTEIN (test code = PROT) 6.6 g/dL 6.4-8.2 N ALBUMIN (test code = ALB) 4.0 g/dL 3.4-5.0 N GLOBULIN (test code = GLOB) 2.6 g/dL 2.2-4.2 N ALBUMIN/GLOBULIN RATIO (test 1.5 0.7-2.0 N code = A/G) CALCIUM (test code = CA) 8.8 mg/dL 8.2-10.1 N BILIRUBIN TOTAL (test code = 0.60 mg/dL 0.2-1.00 N BILT) SGOT/AST (test code = AST) 20.0 U/L 15-37 N SGPT/ALT (test code = ALT) 36.0 U/L 12-78 N P lease note new normal range. ALKALINE PHOSPHATASE TOTAL (test 73 U/L 46-116 N code = ALKP) CBC W/AUTO [id number] 12:45:00 Test Item Value Reference Range Interpretation Comments WHITE BLOOD CELL (test code = WBC) 5.8 K/mm3 5.7-10.5 N RED BLOOD CELL (test code = RBC) 4.82 M/mm3 4.2-5.4 N HEMOGLOBIN (test code = HGB) 14.4 g/dL 12-16 N HEMATOCRIT (test code = HCT) 43.4 % 37-47 N MEAN CELL VOLUME (test code = MCV) 90 fL 80-98 N MEAN CELL HGB (test code = MCH) 29.9 pg 27-34 N MEAN CELL HGB CONCENTRATION (test 33.2 g/dL 30.8-34.1 N code = MCHC) RED CELL DISTRIBUTION WIDTH (test 17.4 % 11-16 H code = RDW) PLT (test code = PLT) 219 K/mm3 130-400 N MEAN PLATELET VOLUME (test code = 9.7 fL 8.9-12.1 N MPV) NEUTROPHIL % (test code = NT%) 68.2 % 45-70 N LYMPHOCYTE % (test code = LY%) 18.4 % 20-40 L MONOCYTE % (test code = MO%) 10.9 % 3-10 H EOSINOPHIL % (test code = EO%) 1.7 % 1-5 N BASOPHIL % (test code = BA%) 0.5 % 0.0-1.1 N NEUTROPHIL # (test code = NT#) 3.95 K/mm3 2.00-7.50 N LYMPHOCYTE # (test code = LY#) 1.07 K/mm3 1.50-4.00 L MONOCYTE # (test code = MO#) 0.63 K/mm3 0.2-0.8 N EOSINOPHIL # (test code = EO#) 0.10 K/mm3 0.04-0.4 N BASOPHIL # (test code = BA#) 0.03 K/mm3 0.02-0.10 N MANUAL DIFF REQUIRED (test code = NO MANUAL DIFF MDIFF) NUCLEATED RED BLOOD CELL (test 0 % 0-0 N code = NRBC) CHEST 2 [id number] 11:47:00 [place] [address] Patient Name: LILIAN DUNLAP MR #: [id number] : 1950 Age/Sex: 67/M Req #: [id number] Adm Physician: Ordered by: ERIK JONES MD Report #: [id number] Location: OR Room/Bed: __ Procedure: [id number] DX/CHEST 2 VIEWS Exam Date: Exam Time: [...] 11:47 AM Dictated By: ROMMEL FRIEND MD [id number] Transcribed By: OLMAN on 03/09/18 1147 COPY TO: ERIK JONES MD
[2021-12-16 02:30] LABS: Absolute Lymphocytes (CBC) 1.2 K/uL (0.7-4.9); Hematocrit 38.1 % (39.6-49.0); Lymphocytes % 24.7 % (15.3-44.8); MCV 94.1 fL (80-100); MPV 7.3 fL (7.6-11.3); RBC Red Blood Cell Count 4.05 M/uL (4.33-5.43)
[2021-12-16] MEDS ORDERED: MORPHINE 2 MG/ML SYR ONE (02:39)
[2021-12-16] MEDS ORDERED: ONDANSETRON 4 MG/2 ML VIAL ONE (02:39)
[2021-12-16 02:43] LABS: Potassium 3.6 mmol/L (3.5-5.1); Troponin High Sensitivity 4.7 pg/mL (<58.9)
--- NOTE | 2021-12-16 06:26 | ER ---
Nurse's Notes [facility] Name: Seth Ng Age: 71 yrs Sex: Male : 1950 Arrival Date: 12/16/2021 Time: 01:59 Bed 28 Private MD: Diagnosis: Chest pain, unspecified;Unstable angina Presentation: 12/16 02:06 Chief complaint: Patient states: "My blood pressure has been high. I also have been tw5 having this chest pain that feels like something is sitting on my chest and I started to develop a sharp pain between my shoulder blades. Last year I was told that I had a Maker that was 70% blocked but they didn't stent it. The doc said he would clear it with medication. I had a stents in other places. ". Coronavirus screen: Vaccine status: Patient reports receiving the 2nd dose of the covid vaccine. Moderna. Ebola Screen: Patient negative for fever greater than or equal to 101.5 degrees Fahrenheit, and additional compatible Ebola Virus Disease symptoms Patient denies exposure to infectious person. Patient denies travel to an Ebola-affected area in the 21 days before illness onset. Initial Sepsis Screen: Does the patient meet any 2 criteria? Yes Does the patient have a suspected source of infection? No. Patient's initial sepsis screen is negative. Risk Assessment: Do you want to hurt yourself or someone else? Patient reports no desire to harm self or others. Onset of symptoms was December 15, 2021 at 15:00. 02:06 Method Of Arrival: Ambulatory tw5 02:06 Acuity: NEO 2 tw5 02:23 Care prior to arrival: Medication(s) given: ASA, 325 mg. kl 02:56 Note pt reports decrease in pain down to a 2 on 1-10 pain scale. kl Triage Assessment: 02:08 General: Appears uncomfortable, Behavior is calm, cooperative, appropriate for age. tw5 Pain: Complains of pain in left scapular area, right scapular area, thoracic area and chest Pain currently is 9 out of 10 on a pain scale. Cardiovascular: Chest pain is described as Pain is 9 out of 10 on a pain scale. quality is heaviness. Historical: - Home Meds: 02:08 atorvastatin 80 mg oral tab 1 tab once daily [Active]; aspirin 81 mg Oral tab [Active]; tw5 levothyroxine 50 mcg tab 1 tab once daily [Active]; lisinopril 40 mg Oral tab 1 tab once daily [Active]; clopidogrel 75 mg oral tab 1 tab once daily [Active]; - PMHx: 02:08 Hypertension; Hypothyroidism; Hypercholesterolemia; tw5 - PSHx: 02:08 heart stent; tw5 - Immunization history:: Flu vaccine is not up to date. - Social history:: Smoking status: Patient denies any tobacco usage or history of. Screenin:16 Abuse screen: Denies threats or abuse. Nutritional screening: No deficits noted. kl Tuberculosis screening: No symptoms or risk factors identified. Fall Risk None identified. Assessment: 02:14 General: Appears in no apparent distress. comfortable, well groomed, well developed, kl Behavior is calm, cooperative. Pain: Complains of pain in chest and back and thoracic area and right scapular area and left scapular area Pain currently is 9 out of 10 on a pain scale. Pain began. 02:15 Neuro: No deficits noted. Doyle Agitation-Sedation Scale (RASS): 0 - Alert and Calm kl Level of Consciousness is awake, alert, obeys commands, Oriented to person, place, time, situation. Cardiovascular: No deficits noted. Cardiovascular: Rhythm is. Respiratory: No deficits noted. Airway is patent Respiratory effort is even, unlabored, Respiratory pattern is regular. GI: No deficits noted. No signs and/or symptoms were reported involving the gastrointestinal system. : No deficits noted. No signs and/or symptoms were reported regarding the genitourinary system. 03:36 Reassessment: Patient appears in no apparent distress at this time. Patient and/or jb4 family updated on plan of care and expected duration. Pain level reassessed. Patient is alert, oriented x 3, equal unlabored respirations, skin warm/dry/pink. 04:37 Reassessment: Patient appears in no apparent distress at this time. Patient and/or jb4 family updated on plan of care and expected duration. Pain level reassessed. Patient is alert, oriented x 3, equal unlabored respirations, skin warm/dry/pink. Patient states feeling better. Patient states symptoms have improved. 06:00 Reassessment: Patient appears in no apparent distress at this time. Patient and/or jb4 family updated on plan of care and expected duration. Pain level reassessed. Patient is alert, oriented x 3, equal unlabored respirations, skin warm/dry/pink. Vital Signs: 02:06 BP 168 / 101; Pulse 75; Resp 18; Temp 98.2; Pulse Ox 97% on R/A; Weight 99.34 kg; tw5 Height 5 ft. 9 in. (175.26 cm); Pain 9/10; 02:22 BP 146 / 94; Pulse 73; Resp 20; Pulse Ox 93% on R/A; kl 02:58 BP 140 / 83; Pulse 68; Resp 18; Pulse Ox 95% on R/A; Pain 2/10; kl 04:28 BP 140 / 83; Pulse 65; Resp 14; Pulse Ox 95% ; kl 06:00 BP 164 / 95; Pulse 63; Resp 12; Pulse Ox 96% on R/A; jb4 02:06 Body Mass Index 32.34 (99.34 kg, 175.26 cm) tw5 ED Course: 01:59 Patient arrived in ED. bp1 02:02 Anand De Leon MD is Attending Physician. kdr 02:08 Triage completed. tw5 02:08 Arm band placed on right wrist. 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 02:14 EKG completed in triage. Results shown to MD. kl 02:23 XRAY Chest (1 view) In Process Unspecified. EDMS 03:23 CT Aorta for Dissection In Process Unspecified. EDMS 04:37 Dylon Sifuentes RN is Primary Nurse. jb4 06:25 Caden Allen MD is Hospitalizing Provider. kdr 07:13 Primary Nurse role handed off by Dylon Sifuentes RN jl7 23:19 César Taylor, MAN is Primary Nurse. ke1 12/17 08:16 role handed off by Mady Gary RN bd Administered Medications: 12/16 02:37 Drug: morphine 2 mg Route: IVP; Infused Over: 4 mins; Site: right antecubital; kl 02:39 Drug: Zofran (Ondansetron) 4 mg Route: IVP; Site: right antecubital; kl Outcome: 06:25 Decision to Hospitalize by Provider. kdr 12/17 09:15 Patient left the ED. ph Signatures: Dispatcher [employer] EDMS Jeanna Emery Dante, Renuka, RN RN Anand Seo MD MD kdr Hall, Patricia, RN RN ph Bryson, James, RN RN natali4 Danna Vargas RN RN jl7 Kari Monique Tiffany 5 César Taylor RN RN ke1 Corrections: (The following items were deleted from the chart) 12/16 02:10 02:08 PMHx: Thyroid problem; 5 tw5
--- NOTE | 2021-12-16 06:26 | EDPHYS ---
Physician Documentation [facility] Name: Seth Ng Age: 71 yrs Sex: Male : 1950 Arrival Date: 12/16/2021 Time: 01:59 Bed 28 Private MD: ED Physician Anand De Leon HPI: 12/16 03:07 This 71 yrs old Male presents to ER via Ambulatory with complaints of Chest Pain > 30 kdr y/o, High Blood Pressure. 03:07 The patient or guardian reports chest pain that is located primarily in the substernal kdr area, anterior chest wall. Onset: suddenly, just prior to arrival, 3 hour(s) ago. The pain radiates to back, Middle of back. Associated signs and symptoms: Pertinent positives: nausea, Pertinent negatives: cough, diaphoresis, dizziness, headache, lower extremity pain, lower extremity swelling, lightheadedness, near syncope, palpitations, recent travel, shortness of breath, syncope, vomiting. The chest pain is described as aching, a pressure, stabbing. Duration: The patient or guardian reports a single episode, that is still ongoing, and unchanged. Modifying factors: The symptoms are alleviated by nothing. the symptoms are aggravated by nothing. Severity of pain: At its worst the pain was moderate severe just prior to arrival, in the emergency department the pain has improved moderately. The patient has experienced similar episodes in the past, a few times, Once was when he received one or more cardiac stents - no stenting of his aorta. The patient has not recently seen a physician. Historical: - Home Meds: 02:08 atorvastatin 80 mg oral tab 1 tab once daily [Active]; aspirin 81 mg Oral tab [Active]; tw5 levothyroxine 50 mcg tab 1 tab once daily [Active]; lisinopril 40 mg Oral tab 1 tab once daily [Active]; clopidogrel 75 mg oral tab 1 tab once daily [Active]; - PMHx: 02:08 Hypertension; Hypothyroidism; Hypercholesterolemia; tw5 - PSHx: 02:08 heart stent; tw - Immunization history:: Flu vaccine is not up to date. - Social history:: Smoking status: Patient denies any tobacco usage or history of. ROS: 03:07 Constitutional: Negative for fever, chills, and weight loss, Eyes: Negative for injury, kdr pain, redness, and discharge, ENT: Negative for injury, pain, and discharge, Neck: Negative for injury, pain, and swelling, Respiratory: Negative for shortness of breath, cough, wheezing, and pleuritic chest pain, Abdomen/GI: Negative for abdominal pain, nausea, vomiting, diarrhea, and constipation, : Negative for injury, bleeding, discharge, and swelling, MS/Extremity: Negative for injury and deformity, Skin: Negative for injury, rash, and discoloration, Neuro: Negative for headache, weakness, numbness, tingling, and seizure activity. Psych: Negative for depression, anxiety, suicide ideation, homicidal ideation, and hallucinations, Allergy/Immunology: Negative for hives, rash, and allergies, Endocrine: Negative for neck swelling, polydipsia, polyuria, polyphagia, and marked weight changes, Hematologic/Lymphatic: Negative for swollen nodes, abnormal bleeding, and unusual bruising. 03:07 Cardiovascular: Positive for chest pain, with cough, with movement, of the mid-sternal area. 03:07 Back: Positive for pain at rest, of the left subscapular area, right subscapular area and thoracic area. Exam: 03:01 ECG was reviewed by the Attending Physician. kdr 03:07 Constitutional: This is a well developed, well nourished patient who is awake, alert, kdr and in no acute distress. Head/Face: Normocephalic, atraumatic. Eyes: Pupils equal round and reactive to light, extra-ocular motions intact. Lids and lashes normal. Conjunctiva and sclera are non-icteric and not injected. Cornea within normal limits. Periorbital areas with no swelling, redness, or edema. Neck: Trachea midline, no thyromegaly or masses palpated, and no cervical lymphadenopathy. Supple, full range of motion without nuchal rigidity, or vertebral point tenderness. No Meningismus. Chest/axilla: Normal chest wall appearance and motion. Nontender with no deformity. No lesions are appreciated. Cardiovascular: Regular rate and rhythm with a normal S1 and S2. No gallops, murmurs, or rubs. Normal PMI, no JVD. No pulse deficits. Respiratory: Lungs have equal breath sounds bilaterally, clear to auscultation and percussion. No rales, rhonchi or wheezes noted. No increased work of breathing, no retractions or nasal flaring. Abdomen/GI: Soft, non-tender, with normal bowel sounds. No distension or tympany. No guarding or rebound. No evidence of tenderness throughout. Back: No spinal tenderness. No costovertebral tenderness. Full range of motion. Skin: Warm, dry with normal turgor. Normal color with no rashes, no lesions, and no evidence of cellulitis. Vital Signs: 02:06 BP 168 / 101; Pulse 75; Resp 18; Temp 98.2; Pulse Ox 97% on R/A; Weight 99.34 kg; tw5 Height 5 ft. 9 in. (175.26 cm); Pain 9/10; 02:22 BP 146 / 94; Pulse 73; Resp 20; Pulse Ox 93% on R/A; kl 02:58 BP 140 / 83; Pulse 68; Resp 18; Pulse Ox 95% on R/A; Pain 2/10; kl 04:28 BP 140 / 83; Pulse 65; Resp 14; Pulse Ox 95% ; kl 06:00 BP 164 / 95; Pulse 63; Resp 12; Pulse Ox 96% on R/A; jb4 02:06 Body Mass Index 32.34 (99.34 kg, 175.26 cm) tw5 MDM: 03:07 Data reviewed: vital signs, nurses notes, lab test result(s), radiologic studies, I kdr have discussed the patient's presentation/case with the attending Emergency Department Physician;. Counseling: I had a detailed discussion with the patient and/or guardian regarding: the historical points, exam findings, and any diagnostic results supporting the discharge/admit diagnosis, lab results, radiology results. 06:25 Patient medically screened. [facility] 12/16 02:02 Order name: Basic Metabolic Panel; Complete Time: 04:42 [facility] 12/16 02:02 Order name: CBC with Diff; Complete Time: 04:42 [facility] 12/16 02:02 Order name: NT PRO-BNP; Complete Time: 04:42 [facility] 12/16 02:02 Order name: Troponin HS; Complete Time: 04:42 [facility] 12/16 07:41 Order name: Basic Metabolic Panel [facility] 12/16 07:41 Order name: Basic Metabolic Panel [facility] 12/16 02:02 Order name: XRAY Chest (1 view) [facility] 12/16 02:33 Order name: CT Aorta for Dissection [facility] 12/16 07:41 Order name: CBC with Automated Diff EDMS 12/16 07:41 Order name: CBC with Automated Diff EDMS 12/16 07:55 Order name: SARS RAPID eb 12/16 08:44 Order name: SARS-COV-2 Antigen Rapid EDMS 12/16 02:02 Order name: EKG; Complete Time: 02:03 kdr 12/16 02:02 Order name: Cardiac monitoring; Complete Time: 02:14 kdr 12/16 02:02 Order name: EKG - Nurse/Tech; Complete Time: 02:14 kdr 12/16 02:02 Order name: IV Saline Lock; Complete Time: 02:14 kdr 12/16 02:02 Order name: Labs collected and sent; Complete Time: 02:51 kdr 12/16 02:02 Order name: O2 Per Protocol; Complete Time: 02:14 kdr 12/16 02:02 Order name: O2 Sat Monitoring; Complete Time: 02:14 kdr 12/16 07:41 Order name: CONS Physician Consult EDMS 12/16 07:41 Order name: Regular EDMS 12/16 07:41 Order name: EKG Electrocardiogram EDMS 12/16 07:41 Order name: EKG Electrocardiogram EDMS 12/16 07:41 Order name: EKG Electrocardiogram EDMS 12/16 07:41 Order name: EKG Electrocardiogram EDMS EC:01 Rate is 70 beats/min. Rhythm is regular, Normal Sinus Rhythm with No ectopy. QRS Annona kdr is Normal. MA interval is normal. QRS interval is normal. QT interval is normal. Clinical impression: Normal ECG. Administered Medications: 02:37 Drug: morphine 2 mg Route: IVP; Infused Over: 4 mins; Site: right antecubital; 02:39 Drug: Zofran (Ondansetron) 4 mg Route: IVP; Site: right antecubital; Disposition Summary: 12/16/21 06:25 Hospitalization Ordered Hospitalization Status: Observation kdr Provider: Caden Allen Condition: Fair kdr Problem: an acute exacerbation kdr Symptoms: have improved kdr Bed/Room Type: Standard kdr Location: Telemetry/MedSurg (observation)(12/17/21 09:05) bd Room Assignment: 405(12/17/21 09:05) bd Diagnosis - Chest pain, unspecified kdr - Unstable angina kdr Forms: - Medication Reconciliation Form kdr - SBAR form kdr Signatures: Dispatcher [employer] EDMS Jeanna Emery Kimberly, RN RN kl Rittger, Kevin, MD MD kdr Garcia, Cindy, RN RN cg Wood, Tiffany Corrections: (The following items were deleted from the chart) 02:10 02:08 PMHx: Thyroid problem; 18:48 06:25 Telemetry/MedSurg (observation) kdr cg 18:48 06:25 kdr cg 12/17 09:05 12/16 18:48 [facility] ER HOLD cg bd 12/17 09:05 12/16 18:48 ERHOLD- cg bd
[2021-12-16] MEDS ORDERED: ONDANSETRON 4 MG/2 ML VIAL IV PRN (07:37)
[2021-12-16] MEDS ORDERED: ACETAMINOPHEN 500 MG TAB PO PRN (07:37)
[2021-12-16 08:44] LABS: SARS-CoV-2 Antigen Rapid Res Negative (Negative)
[2021-12-16 08:46] VITALS: BMI 32.3
[2021-12-16] MEDS: ASPIRIN EC 81 MG TAB PO SCH (09:00)
[2021-12-16] MEDS ORDERED: ACETAMINOPHEN 500 MG TAB ONE (13:56)
[2021-12-16] MEDS ORDERED: lisinopriL 20 MG TAB ONE (14:43)
[2021-12-16] MEDS ORDERED: ATORVASTATIN 20 MG TAB ONE (14:44)
[2021-12-16] MEDS ORDERED: CLOPIDOGREL 75 MG TABLET ONE (14:44)
[2021-12-16] MEDS: ATORVASTATIN 80 MG TAB PO SCH (14:53)
[2021-12-16] MEDS: CLOPIDOGREL 75 MG TABLET PO SCH (14:55)
[2021-12-16] MEDS: lisinopriL 20 MG TAB PO SCH (14:56)
[2021-12-16] MEDS: METOPROLOL TAR 25 MG TAB PO SCH ×2 (15:09→21:00)
--- NOTE | 2021-12-16 17:13 | PN ---
Date of Progress Note: 12/16/2021 The patient states he has had no further chest pain when seen in the afternoon; however, for some cain son, the information that the patient was present in the ER was not conveyed to the community placement worker, so he was not seen or talked to him and felt in view of the fact that it is a combination of circumstanc es in last catheterization, poorly controlled blood pressure and 1 episode of chest pain. Probable c atheterization would be indicated. In any event, preparation for this, he is going to be made n.p.o. He has been placed on his usual medications of lisinopril, Plavix, aspirin for cardiac status and we added metoprolol 25 mg b.i.d., starting this afternoon and kept n.p.o. after midnight. At present, gris lopez does complain of a headache; however, as mentioned, he has no further chest pain. No dyspnea. How ever, he does state that when he moves around even briefly, he does not get chest pain, but he does h ave hypertension. HR/MODL Voice ID: [id number] Report ID: [id number]
--- NOTE | 2021-12-16 17:19 | HP ---
Date of Admission: 12/16/2021 Chief Complaint: Chest pain and blood pressure issues. History Of Present Illness: The patient dates his history back approximately a year ago when he had a stent placed in 1 vessel, sounds like circumflex and was told his anterior was approximately 67% bl ocked and he was placed on Plavix, aspirin, and blood pressure medicine in the form of lisinopril. T his he states controlled well until the past month or so when he would get diastolic blood pressures in the low 100s and systolic 170-180. The night of the admission, he had some chest discomfort and m arkedly elevated blood pressure and therefore presented to the emergency room. As outstanding issue, the patient was scheduled for hip replacement on the right and required cardiac clearance, which was scheduled in 2 weeks. Past Medical History: As above. Family History: Noncontributory. Social History: Nonsmoker, nondrinker. Physical Examination: General: The patient is slightly uncomfortable, elderly male. Vital Signs: The patient has a blood pressure of 168/101, pulse 75, respiratory rate 18, pulse ox 97 %. Head and Neck: Normocephalic. Pupils equal and reactive to light and accommodation. Fundi negative . Trachea midline. Thyroid not palpable. ENT: Negative. Chest: Clear to P and A. Cardiovascular: PMI midclavicular line. Heart sounds normal. Peripheral pulses are present and equal bilaterally. Abdomen: No organomegaly. Bowel sounds present. Extremities: Good tone and movement bilaterally. Reflexes physiologic. Rectal: Deferred. Impression: Chest pain, possible angina; hypertension, poor control. Plan: The patient will be admitted, monitored. Cardiac consultation will be obtained. HR/MODL Voice ID: [id number]
[2021-12-17 02:57] LABS: Absolute Lymphocytes (CBC) 1.2 K/uL (0.7-4.9); Hematocrit 38.9 % (39.6-49.0); MCV 94.8 fL (80-100); MPV 7.5 fL (7.6-11.3); RBC Red Blood Cell Count 4.11 M/uL (4.33-5.43)
[2021-12-17 03:29] LABS: Potassium 4.7 mmol/L (3.5-5.1)
[2021-12-17] MEDS: METOPROLOL TAR 25 MG TAB PO SCH ×2 (06:00→17:01)
[2021-12-17] MEDS ORDERED: LEVOTHYROXINE SOD 0.05 MG TABLET PO SCH (06:00)
[2021-12-17] MEDS ORDERED: METOPROLOL TAR 25 MG TAB ONE (06:23)
[2021-12-17] MEDS ORDERED: NA CHLORIDE 0.9% 500 ML ONE (07:47)
--- NOTE | 2021-12-17 08:10 | EKG ---
Test Date: 2021-12-16 Test Time: 02:06:53 Astrobiologist: SATISH MEASUREMENT RESULTS: Intervals: Rate: 70 AR: 174 QRSD: 102 QT: 404 QTc: 436 Furlong: P: 28 AR: 174 QRS: -22 T: 44 INTERPRETIVE STATEMENTS: Normal sinus rhythm Normal ECG Compared to ECG 06/11/2021 10:27:24 No significant changes Electronically Signed On 12-17-21 08:06:35 CDT by Deepak Gandara
[2021-12-17] MEDS ORDERED: FENTANYL CITR 100 MCG/2 ML ONE (08:49)
[2021-12-17] MEDS ORDERED: ATROPINE SULF 1 MG/10 ML SYR IV ONE (08:49)
[2021-12-17] MEDS ORDERED: MIDAZOLAM HCL 2 MG/2 ML INJ ONE (08:49)
[2021-12-17] MEDS ORDERED: NA CHLORIDE 0.9% 50 ML IV ONE (08:49)
[2021-12-17] MEDS: lisinopriL 20 MG TAB PO SCH (09:00)
[2021-12-17] MEDS ORDERED: ASPIRIN EC 81 MG TAB PO SCH (09:00)
[2021-12-17] MEDS: ASPIRIN EC 81 MG TAB PO SCH (09:00)
[2021-12-17] MEDS: CLOPIDOGREL 75 MG TABLET PO SCH (09:00)
[2021-12-17] MEDS: ATORVASTATIN 80 MG TAB PO SCH (09:00)
[2021-12-17] MEDS ORDERED: PRASUGREL (EFFIENT) 10 MG TAB ONE (09:07)
[2021-12-17] MEDS ORDERED: ASPIRIN 325 MG TAB ONE (09:07)
[2021-12-17] MEDS ORDERED: HEPA 1000U/500MLS 1,000 UNIT/500 ML BAG IV ONE (10:10)
--- NOTE | 2021-12-17 13:23 | RAD REPORT ---
EXAM DESCRIPTION: RAD - Chest Single View - 12/16/2021 2:21 am CLINICAL HISTORY: 71 years Male, CHEST PAIN COMPARISON: Chest x-ray reports from 05/04/2020. The image was unavailable for review. TECHNIQUE: Single portable x-ray view of the chest performed on 12/16/2021 at 2:18 AM FINDINGS: The lungs are relatively well expanded and are clear. There is no evidence of a pneumothor ax. The cardiac silhouette is normal in size and configuration. The mediastinal contours are normal. No acute osseous abnormality is identified. No acute soft tissue abnormalities are seen. Lines and tubes: None. Free air: None IMPRESSION: No evidence of acute intrathoracic disease. Electronically signed by: Lizette Verdin DO 12/16/2021 3:11 AM CDT Due to temporary technical issues with the PACS/Fluency reporting system, reports are being signed by the in house radiologists without review as a courtesy to insure prompt reporting. The interpreting radiologist is fully responsible for the content of the report.
--- NOTE | 2021-12-17 13:32 | RAD REPORT ---
EXAM DESCRIPTION: CT - Angio Aorta For Dissection - 12/16/2021 7:15 am CLINICAL HISTORY: Chest pain radiating to back COMPARISON: None. TECHNIQUE: CT CHEST ABDOMEN PELVIS ANGIOGRAPHY WITH IV CONTRAST on 12/16/2021 2:33 AM CDT. MIPS recon structions were generated. This exam was performed according to our departmental dose-optimization program, which includes autom ated exposure control, adjustment of the mA and/or kV according to patient size and/or use of iterati ve reconstruction technique. FINDINGS: Vascular: Thoracic aorta is normal in course and caliber without aneurysm or dissection. P ulmonary arteries are adequately opacified without acute or chronic filling defects. Abdominal aorta is normal in course and caliber without aneurysm. Pelvic arteries are patent without aneurysm or occl usion. Chest: The heart is normal in size. There is no pericardial effusion. Intrathoracic lymph nodes are n ot enlarged. There is no pleural effusion, pleural thickening or pneumothorax. Central airways are patent. There i s a tiny calcified granuloma in the superior segment of the left lower lobe. Right diaphragm is eleva bonnie. Abdomen: The liver is normal in appearance. There is no biliary dilatation. There is a small hiatal h ernia. The pancreas and spleen are normal in appearance. Adrenal glands are normal. Kidneys are mildl y atrophic. There is no free air. There is no retroperitoneal adenopathy. Pelvis: There is mild left colonic diverticulosis. Urinary bladder is unremarkable. There is no free fluid. Appendix is normal. Skeleton: There are no acute osseous findings. No suspicious bony lesions. IMPRESSION: No definite acute process. Electronically signed by: Nabil Avila MD 12/16/2021 5:07 AM CDT Due to temporary technical issues with the PACS/Fluency reporting system, reports are being signed by the in house radiologists without review as a courtesy to insure prompt reporting. The interpreting radiologist is fully responsible for the content of the report.
--- NOTE | 2021-12-17 14:20 | CON ---
Date of Consultation: 12/16/[address] Allen on 12/16/2021. I saw the patient on 12/16/2021. Reason For Consultation: Unstable angina. History Of Present Illness: Mr. Ng is a 71-year-old male who has a history of coronary artery d isease with moderate disease in LAD and circumflex, had stent in the RCA in the past, came in with se abhishek hypertension and chest pain that is substernal radiating to the arm with some diaphoresis. No n ausea, vomiting, PND, orthopnea, pedal edema, palpitations, or syncope. [place] has been ruled out. Past Medical History: As stated above. Allergies: TO CODEINE. Medications: At home include aspirin, Plavix, Lipitor, metoprolol, and lisinopril. Review of Systems: Positive . Social History: Negative. Family History: Noncontributory. Physical Examination: By the emergency room physician, Dr. Allen was normal. His vital signs were stable. Diagnostic Data: Unremarkable. Impression And Plan: 1.Hypertensive crisis. 2.Unstable angina. 3.Coronary artery disease, status post stents in the past in the RCA with moderate circumflex and LA D disease. 4.Other problem is dyslipidemia, which is stable. I plan to do a left heart catheterization to define his coronary anatomy in the morning. The patient understands the risks and the benefits of the future. He agrees to proceed. We will see what the c atheterization shows. We will make then further decision. DARNELL/DEMETRICE Voice ID: [id number] Report ID: [id number]
[2021-12-17 14:54] VITALS: O2SAT 96
[2021-12-17 16:54] VITALS: BP 126/71; TEMP 97.6
--- NOTE | 2021-12-17 20:17 | OP ---
Surgeon: Deepak Gandara MD Admitted on 12/16/[address] Allen's service with chest pain and unstable angina, brought to the c ath lab today as an inpatient on 12/17/2021. He underwent a left heart catheterization, selective co ronary arteriogram, common femoral artery angiogram, and primary RCA stent. Procedure In Detail: In the slab lifting supervisor, the patient was prepped and draped in the routine sterile [facility] ion. He received Versed and fentanyl for sedation. A 6-[place] sheath introduced in the right common femoral artery successfully using 10 cc of xylocaine and a Seldinger technique. Angiography there w as normal. Angio-Seal was used to close the case. Biju catheters 6-[place] left and right were us ed to cannulate the left main and right main respectively. He has dual ostium for the LAD and the ci rcumflex. The LAD had about a 40% stenosis in the middle of it right after the first diagonal. The circumflex had about a 30% to 40% mid circumflex as well. He had a codominant system. The JR4 cannu lated the RCA. He had a proximal stent in the RCA with a 90% in-stent restenosis. He received Angio max, Effient. A JR4 guide with 6-[place] with side hole was used to cannulate the right main. A [place] ar wire 0.014 was used to cross the lesion successfully. A 3.0 x 60 mm stent was placed within the o ld stent at 14 atmospheres. There were 0% residual. There were no complications. Blood Loss: 5 mL. Postoperative Diagnosis: Successful stent of the proximal RCA in-stent restenosis. Plan: Plan is for medical therapy after that. The patient will be in the hospital for another 6 keagan rs. He will go home today. He will be hydrated. He will see me in the office in 2 weeks. DARNELL/DEMETRICE Voice ID: [id number] Report ID: [id number]
--- NOTE | 2021-12-17 21:33 | PN ---
The patient underwent cardiac procedure; at which time, a stent was placed by Dr. Gandara. He tolera bonnie the procedure well. His postoperative course has been uneventful. When seen this afternoon, Tony fraser he could be discharged to continue on his usual medication in the addition of metoprolol 25 mg b. i.d. to follow up with me in 1 week for steroid injection of his hip and Dr. Gandara in 2 weeks. HR/MODL Voice ID: [id number] Report ID: [id number]
== END 2021-12-17 17:20 | disposition home or self-care (01) | DRG 247 ==
LOC: ER 01:57 → ERHOLD 07:47 → 4TH 12-17 11:00
PROVIDERS: ADMIT Family Medicine; ATTEND Family Medicine
PROC: 027034Z Dilation of Coronary Artery, One Artery with Drug-eluting Intraluminal Device, Percutaneous Approach (ICD-10-PCS; principal; 2021-12-17)
PROC: 4A023N7 Measurement of Cardiac Sampling and Pressure, Left Heart, Percutaneous Approach (ICD-10-PCS; 2021-12-17)
PROC: B2111ZZ Fluoroscopy of Multiple Coronary Arteries using Low Osmolar Contrast (ICD-10-PCS; 2021-12-17)
DX: T82.855A Stenosis of coronary artery stent, initial encounter (principal); I16.9 Hypertensive crisis, unspecified; I25.119 Atherosclerotic heart disease of native coronary artery with unspecified angina pectoris; I10 Essential (primary) hypertension; E78.5 Hyperlipidemia, unspecified; E03.9 Hypothyroidism, unspecified; Z95.5 Presence of coronary angioplasty implant and graft; Z79.82 Long term (current) use of aspirin; Z79.890 Hormone replacement therapy; Z79.02 Long term (current) use of antithrombotics/antiplatelets; Z79.899 Other long term (current) drug therapy; Z88.5 Allergy status to narcotic agent; Z20.822 Contact with and (suspected) exposure to COVID-19
CPT/HCPCS: 36415; 71045; 71275; 74175; 80048; 83880; 84484; 85025; 85347; 87811; 93005; 93454; 96374; 96375; 99284; C1725; C1760; C1893; C9600; G0269; J0583; J1644; J2250; J2270; J2405; J3010; J7040; Q9967